=== PATIENT | female | born 2000 | race Caucasian/White ===

== ENCOUNTER 2021-05-27 16:37 | Outpatient (REF) | payer OTHER, SELFPAY ==
[2021-05-27 17:00] LABS: COVID-19 Test Negative (Negative)
== END 2021-05-27 16:38 | disposition home or self-care (01) ==
LOC: HO.LAB 16:37
PROVIDERS: PCP Nurse Practitioner Family; Visit Provider Internal Medicine
DX: Z20.822 Contact with and (suspected) exposure to COVID-19 (principal)
CPT/HCPCS: 36415; 87635

== ENCOUNTER 2024-01-23 09:03 | Outpatient (AMB) | payer OTHER, SELFPAY ==
[2024-01-23 09:11] VITALS: BP 118/76; PULSE 90; O2SAT 99; BMI 20.8
--- NOTE | 2024-01-23 09:11 | MHC.PC.OV ---
Vital Signs 01/23/24 09:11 Height 5 ft 8 in Weight 137 lb 0.2 oz BMI 20.8 BP 118/76 Blood Pressure Location Lt brachial Position Sitting Pulse 90 Pulse Source Pulse Oximeter Pulse Oximetry (%) 99 Oxygen Delivery Method Room Air Intake Visit Reasons: Demetrius Howell () called to make appt Curator Of Education Required: No Allergies No Known Allergies Allergy (Verified 01/23/24 09:19) Medication List - Last Reconciled 01/23/24 by Christine Sebastian PA-C norethindrone (contraceptive) 0.35 mg PO DAILY Tobacco use date assessed: 01/23/24 Dental Screening Dental Screen Date: 01/23/24 Did you have a dental visit in the last 12 months?: No Did you have a dental problem in the last 6 months where you did not have access to dental care?: No Was dental information given to patient?: Yes HPI Establish Diya Howell () called to make appt HPI Details 23-year-old female with no documented past medical history presenting to the office for the 1st time.? Patient is not known to [facility]. She follows with [facility] [employer] and annual well woman exams. Today she mentions she has been having issues with anxiety and depression and was previously treated for these when under the care of her workforce development program director. She scored high on JASE-7 and PHQ-9 testing and endorses anxious and depressed feelings most days. She also mentions she sleeps poorly and has difficulty falling asleep as well as staying asleep. Previously she had been treated with Trazodone by her workforce development program director and found this helpful. Has also been having increased weight loss over the past few months. She has not other concerns today. [facility] Surgical History [place] teeth removed Family History Mother Breast cancer Maternal Grandfather Lung cancer Paternal Grandfather Lung cancer Social History Housing: Apartment Patient Tobacco Use Status: Never used Tobacco e-Cigarette/Vaping Use: Former Use service: No Current occupational status: employed Cognitive needs: No Hearing needs: No Vision needs: No Female Reproductive History Menstrual control method: pills Total pregnancies: 1 Full term: 1 History of abnormal pap smear: No Questionnaire PHQ-9 Over the last 2 weeks, how often have you been bothered by any of the following problems? 1. Little interest or pleasure in doing things: several days 2. Feeling down, depressed, or hopeless: several days 3. Trouble falling or staying asleep, or sleeping too much: more than half the days 4. Feeling tired or having little energy: more than half the days 5. Poor appetite or overeating: more than half the days 6. Feeling bad about yourself - or that you are a failure or have let yourself or your family down: several days 7. Trouble concentrating on things, such as reading the newspaper or watching television: several days 8. Moving or speaking so slowly that other people could have noticed. Or the opposite - being so fidgety or restless that you have been moving around a lot more than usual: not at all 9. Thoughts that you would be better off or of hurting yourself in some way: not at all Total score: 10 Depression Screening Interpretation: Positive Depression Screening Follow-up: New Medication prescribed, Follow-up Visit Requested and Other (referred to outpatient psych ) Depression Screening Done: Yes 86096 - PHQ-9 Billing: Yes Source: Developed by Drs. Rigoberto Graham, Danyell Marquez, Gilmar Mandujano and colleagues, with an educational parth from [employer]. Thrive Questionnaire Date Thrive assessed: 01/23/24 I am a: Patient What is your living situation today?: I have a steady place to live Within the past 12 months, did the food you bought not last and you didn't have the money to get more?: Never true Within the past 12 months, did you worry whether your food would run out before you got money to buy more?: Never true Do you have trouble paying for medicines?: No Do you have trouble getting transportation to medical appointments?: No Do you have trouble paying your heating and electricity bill?: No Do you have trouble taking care of your child, family member or friend?: No Do you have trouble with day-to-day activities such as bathing, preparing meals, shopping, managing finances, etc.?: No Are you currently unemployed and looking for a job?: No Are you interested in more education?: No Please select the resources that you would like help with: None Currently or been in a relationship where the following occur: No concerns reported THRIVE Score: 0 AUDIT C Alcohol Use Questionnaire (AUDIT-C) 1. How often do you have a drink containing alcohol?: Never 3. How often do you have six or more drinks on one occasion?: Never Total Score: 0 JASE-7 AMB Questionnaire JASE-7 Date JASE - 7 assessed: 01/23/24 Feeling nervous, anxious, or on edge: 3 = Nearly every day Not being able to stop or control worryin = Nearly every day Worrying too much about different things: 3 = Nearly every day Trouble relaxin = Nearly every day Being so restless that it is hard to sit still: 0 = Not at all Becoming easily annoyed or irritable: 3 = Nearly every day Feeling afraid as if something awful might happen: 2 = More than half the days Total JASE-7 score (0-4 normal; 5-9 mild; 10-14 moderate; 15-21 severe): 17 Source: Developed by Drs. Rigoberto Graham, Danyell Marquez, Gilmar Mandujano and colleagues, with an educational parth from [employer]. JASE-7 Assessment Billing JASE-7 Assessment Tool: JASE-7 Assessment 68588 Review of Systems Const Denies body aches, Reports fatigue, Denies fever(s), Denies frequent falls, Denies headache(s), Denies weakness and Reports weight loss Eyes Reports no additional complaints and Denies change in vision ENT Denies dysphagia, Denies dizziness, Denies facial pain, Denies headache(s), Denies nasal congestion and Denies odynophagia Card Denies chest pain, Denies syncope, Denies irregular heart rhythm, Denies leg edema, Denies lightheadedness and Denies dyspnea Resp Denies cough and Denies dyspnea GI Denies constipation, Denies dysphagia, Denies dyspepsia, Denies diarrhea, Denies nausea, Denies odynophagia and Denies vomiting Denies urinary frequency, Denies dysuria, Denies urinary hesitancy and Denies urinary urgency Musc Denies back pain and Denies myalgias Skin/Breast Reports system reviewed and no additional complaints, except as documented Neuro Denies dizziness, Denies syncope, Denies frequent falls, Denies headache(s) and Denies weakness Psych Reports as per HPI Endo Reports fatigue Physical exam (Primary Care) Depression Screening Interpretation: Positive Depression Screening Follow-up: New Medication prescribed, Follow-up Visit Requested and Other (referred to outpatient psych ) Currently or been in a relationship where the following occur: No concerns reported Const General: cooperative, healthy appearing, comfortable and no acute distress Orientation/consciousness: patient oriented x3 HENMT Head: Yes normocephalic Ears: hearing grossly normal bilaterally, external ears normal, TM's normal bilaterally and EAC's normal General nose exam: Normal external nose present Face and sinus: Yes normal facial exam and Yes sinuses nontender Mouth: Normal oral and palatal mucosa present and tongue normal Throat: Yes posterior oropharynx normal Eyes General: appearance normal, both eyes and all related structures Conjunctivae: conjunctivae normal Pupils: Equal, round and reactive pupils present EOM: EOMs intact bilaterally and No Nystagmus present Neck Neck: Yes normal visual inspection, Yes full ROM and Yes no lymphadenopathy Chest Chest palpation & inspection: normal inspection of the chest Resp Effort & Inspection: normal respiratory effort Auscultation: clear to auscultation bilaterally, no crackles, no rales, no rhonchi, no wheezes and breath sounds present Cardio Rate: regular rate Rhythm: regular rhythm Peripheral pulses: radial pulses present and dorsalis pedis present GI Inspection: Yes normal to inspection and No Abdominal wall edema Palpation (GI): Soft to palpation, not firm and nontender Auscultation: normal bowel sounds Rectal Exam - Female: deferred General: Yes no CVA tenderness Back/Spine/Pelvis Back: no CVA tenderness Skin General skin exam: no rashes or lesions noted Neuro General: patient oriented x3 Cranial nerves: Yes Equal, round and reactive pupils present, Yes Midline tongue present, Yes Ability to bilaterally elevate shoulders present and No Nystagmus present Gait exam (Neuro): Normal gait present Extrem General: Yes normal to inspection, Yes full ROM, No no pedal edema and No edema Psych Speech and movement: Normal speech and movement present Affect: normal affect Insight: Good insight present (Psych) Judgement: Good judgement present (Psych) Assessment and Plan Assessment & Plan (1) Anxiety: Code(s): F41.9 - Anxiety disorder, unspecified Plan: Patient was previously treated for anxiety and depression by her workforce development program director and was on Lexapro. She mentions she has been having increased anxiety and depression and is currently on a wait list for psychiatric services. Referred to outpatient [facility] through [facility] in the meantime. (2) Depression: Code(s): F32.A - Depression, unspecified Plan: History of depression previously on Lexapro. She is seeking [facility] for mental health. Patient would like to see a counselor and resume medical management. Referred to outpatient [facility] clinic. (3) Insomnia: Code(s): G47.00 - Insomnia, unspecified Plan: Patient has issues falling asleep and staying asleep was previously on trazodone with good benefit. We will restart trazodone 50 mg as needed before bedtime. Follow up in 2 months to evaluate efficacy. (4) Annual physical exam: Code(s): Z00.00 - Encounter for general adult medical examination without abnormal findings Plan: Patient is up-to-date on all screenings and recommended vaccinations. Follows at [facility] for annual Pap smears. Routine blood work ordered. Plan This note was constructed using voice recognition software. While every effort has been made to ensure accuracy and law examiner, still areas may have been included sometimes these areas may affect the content or meeting of the given symptoms. Total time spent caring for the patient today was 35 minutes. This includes time spent before the visit reviewing the chart, time spent during the visit, and time spent after the visit and documentation. Orders: Orders Complete Blood Count Auto Diff Today Z00.00 - Encounter for general adult medical examination without abnormal findings Free T4 (Free Thyroxine) Today Z00.00 - Encounter for general adult medical examination without abnormal findings Comprehensive Met. Panel Today Z00.00 - Encounter for general adult medical examination without abnormal findings Thyroid Stimulating Hormone Today Z00.00 - Encounter for general adult medical examination without abnormal findings Referrals Psychiatry Outpatient Consultation Service F41.9 - Anxiety disorder, unspecified Medications: New trazodone 50 mg PO BEDTIME PRN 30 tabs 1RF sleep Coding Level of Care Code New Pt Prev Care 18-39yr(76556 Diagnoses Anxiety F41.9 Depression F32.A Insomnia G47.00 Annual physical exam Z00.00 Additional Codes JASE-7 Assessment Billing - JASE-7 Assessment Tool: JASE-7 Assessment 33299 ([id number])
== END 2024-01-23 09:44 | disposition home or self-care (01) ==
PROVIDERS: PCP Nurse Practitioner Family
DX: F41.9 Anxiety disorder, unspecified (principal); F32.A Depression, unspecified; G47.00 Insomnia, unspecified; Z00.00 Encounter for general adult medical examination without abnormal findings
CPT/HCPCS: 96127; 99385

== ENCOUNTER 2024-01-23 09:48 | Outpatient (REF) | payer OTHER, SELFPAY ==
[2024-01-23 10:00] LABS: MANUAL DIFF FLAG NO
[2024-01-23 10:46] LABS: Basophils Percent Auto 0.5 % (0-2); Eosinophils Absolute Auto 0.1 X10*3/uL (0.0-0.4); Eosinophils Percent Auto 1.1 % (0-4); Hematocrit 40.7 % (37.0-47.0); Hemoglobin 13.6 g/dl (12.0-16.0); Imm Gran Abs Auto 0.02 X10*3/uL (0.00-0.03); Imm Gran Pct Auto 0.3 % (0.0-0.4); Lymphocytes Absolute Auto 3.1 X10*3/uL (1.2-4.9); Lymphocytes Percent Auto 39.7 % (20-40); Mean Corpuscular HGB Conc 33.4 g/dl (31.0-35.0); Mean Corpuscular Volume 89.6 fL (80.0-98.0); Mean Platelet Volume 10.2 fL (9.4-12.3); Monocytes Absolute Auto 0.5 X10*3/uL (0.1-1.2); Monocytes Percent Auto 6.7 % (2-11); Neutrophils Absolute Auto 4.1 x10*3/uL (2.0-8.3); Neutrophils Percent Auto 51.7 % (45-73); Platelet Count 297 X10*3/uL (160-400); Red Blood Count 4.54 X10*6/uL (4.20-5.50); Red Cell Distribution Width 12.8 % (11.0-16.0); White Blood Count 7.9 X10*3/uL (4.8-10.8)
[2024-01-23 11:27] LABS: Alanine Aminotransferase 19 U/L (0-31); Albumin Level 4.6 g/dL (3.5-5.0); Alkaline Phosphatase 56 U/L (39-117); Anion Gap 13 (12-20); Aspartate Amino Transferase 11 U/L (5-31); Bilirubin Total 0.6 mg/dL (0.0-1.0); Blood Urea Nitrogen 10 mg/dL (9-16); Calcium 10.2 mg/dL (8.4-10.2); Carbon Dioxide 26 mmol/L (22-29); Chloride 106 mmol/L (96-108); Estimated Glomerular Filt Rate > 60; Glucose Random 100 mg/dL (60-115); Potassium 3.5 mmol/L (3.3-5.1); Sodium 141 mmol/L (135-145); Total Protein 7.5 g/dL (6.5-8.0)
[2024-01-23 11:42] LABS: Free T4 (Free Thyroxine) 0.94 ng/dL (0.71-1.85)
== END 2024-01-23 09:49 | disposition home or self-care (01) ==
LOC: HO.LAB 09:48
DX: Z00.00 Encounter for general adult medical examination without abnormal findings (principal)
CPT/HCPCS: 36415; 80053; 84439; 84443; 85025

== ENCOUNTER 2024-02-01 15:49 | Outpatient (AMB) | payer OTHER, SELFPAY ==
--- OUTSIDE RECORDS SUMMARY | 2024-02-01 15:51 | XMS_ITS | Continuity of Care Document ---
Author Organization [facility] Address [address] [place] [address]- Care Team Providers Care Interior Paneler Name Role Phone Bhavna Rios NP Primary Care Physician [phone] [facility] Date(s): 01/19/21 - 03/17/21 [facility] [address] [place], [place] [address] Attending Physician: Tania Ricks MD Allergies, Adverse Reactions, Alerts Substance Reaction Severity Status NKA Active Immunizations Given and Recorded Vaccine Date Status Refusal Reason SARS-CoV-2 (COVID-19) mRNA BNT-162b2 vac 10/24/20 Recorded Influenza Virus Vaccine (oldterm) 03/26/20 Recorde d Medications Multivitamin Tablet 0 Refills, Maintenance, 12/10/20 10:37:00 EDT, Partial fill upon patient request if the prescription is for a schedule II opioid drug. Start Date: 12/10/20 Status: Ordered No Home Meds Maintenance, 12/03/20 15:30:00 EDT, Supply Start Date: 12/03/20 Status: Ordered Problem List Condition Effective Dates Status Health Status Inform ant Anxiety(Confirmed) Active Family history of diabetes mellitus(Confirmed) Active Overweight(Confirmed) Active Seasonal allergies(Confirmed) Active Maternal varicella, non-immune(Confirmed) Active Social History Social History Type Response Smoking Status Never (less than 100 in lifetime) entered on: 12/03/20 Sex
--- OUTSIDE RECORDS SUMMARY | 2024-02-01 15:51 | XMS_ITS | Continuity of Care Document ---
Author Organization [facility] Address [address] [place] [address]- Care Team Providers Care Outbound Telemarketing Representative Name Role Phone Bhavna Rios NP Primary Care Physician [phone] [facility] Date(s): 12/08/20 - 12/15/[facility] [address] [place] [id number] Attending Physician: Not on Staff, Attending MD Referring Physician: Bo Daniel MD Allergies, Adverse Reactions, Alerts Substance Reaction [...] Status Health Status Inform ant Anxiety(Confirmed) Active Overweight(Confirmed) Active Seasonal allergies(Confirmed) Active Social History Social History Type Response Smoking Status Never (less than 100 in lifetime) entered on: 12/03/20 Sex
--- OUTSIDE RECORDS SUMMARY | 2024-02-01 15:51 | XMS_ITS | Continuity of Care Document ---
Author Organization [facility] Address [address] [place] [address]- Care Team Providers Care Pump Stitcher Name Role Phone Bhavna Rios NP Primary Care Physician Encounter [facility] Date(s): 12/03/20 - 01/17/21 [facility] [address] [place] [id number] Attending Physician: Not on Staff, Attending MD [...]
--- OUTSIDE RECORDS SUMMARY | 2024-02-01 15:51 | XMS_ITS | Continuity of Care Document ---
Author Organization [facility] Address [address] [place] [address]- Care Team Providers Care Supervisor Paper Coating Name Role Phone Bhavna Rios NP Primary Care Physician [place] [facility] Date(s): 04/26/21 - 05/26/21 [facility] [address] [place] [address]- Allergies, Adverse Reactions, Alerts Substance Reaction Severity Status NKA Active Immunizations Given and Recorded Vaccine Date Status Refusal Reason tetanus/diphtheria/pertussis, acel(Tdap) 1 05/05/21 Given SARS-CoV-2 (COVID-19) mRNA BNT-162b2 vac 10/24/20 Recorded Influenza Virus Vaccine (oldterm) 03/26/20 Recorde d 1Result Comment: Handled getting vaccine well Medications Multivitamin Tablet 0 Refills, Maintenance, 12/10/20 10:37:00 EDT, Partial fill upon patient request if the prescription is for a schedule II opioid drug. Start Date: 12/10/20 Status: Ordered Problem List Condition Effective Dates Status Health Status Inform ant Anxiety(Confirmed) Active Excessive weight gain in (Confirmed) Active Family history of diabetes mellitus(Confirmed) Active Obese class I(Confirmed) Active Overweight(Confirmed) Active Right upper quadrant pain(Confirmed) Active Seasonal allergies(Confirmed) Active Maternal varicella, non-immune(Confirmed) Active Social History Social History Type Response Smoking Status Never (less than 100 in lifetime) entered on: 12/03/20 Sex
--- OUTSIDE RECORDS SUMMARY | 2024-02-01 15:51 | XMS_ITS | Continuity of Care Document ---
Author Organization [facility] Address [address] [place] [address]- Care Team Providers Care Dupligraph Operator Name Role Phone Bhavna Rios NP Primary Care Physician [place] [facility] [place]/23[place] - 07/30/21 [facility] [address] [place] [address]- Attending Physician: Bo Daniel MD Allergies, Adverse Reactions, Alerts No Known Allergies Immunizations Given and Recorded Vaccine Date Status Refusal Reason tetanus/diphtheria/pertussis, acel(Tdap) 1 05/05/21 Given SARS-CoV-2 (COVID-19) mRNA BNT-162b2 vac 10/24/20 Recorded Influenza Virus Vaccine (oldterm) 03/26/20 Recorde d 1Result Comment: Handled getting vaccine well Medications acetaminophen 325 mg oral tablet 650 mg, By Mouth, Every 4 hours, PRN, (1-3), may give 325mg per patient preference and re-dose [id number] within 4 hours, if needed. Patient should only receive a total of 650mg of Acetaminophen every 4 hours., Refills 0, Maintenance, Pain , Mild, 0... Start Date: 07/27/21 Status: Ordered DOUBLE ELECTRIC BREAST PUMP DOUBLE ELECTRIC BREAST PUMP, See Instructions, # 1 each, Refills 0, Tot. Refills 0, Maintenance, Z39.1, 06/15/21 9:05:00 EST, Compound Start Date: 06/15/21 Status: Ordered ibuprofen 800 mg oral tablet 800 mg, 1, tablet, By Mouth, Every 8 hours, PRN, (4-6), may give 400mg per patient preference and re-dose with 400mg within 8 hours if needed. Patient should only receive a total of 800mg of Ibuprofen every 8 hours., Refills 0, Maintenance, Pain , M... Start Date: 07/27/21 Status: Ordered Multivitamin Tablet 0 Refills, Maintenance, 12/10/20 10:37:00 EDT, Partial fill upon patient request if the prescription is for a schedule II opioid drug. Start Date: 12/10/20 Status: Ordered Problem List Condition Effective Dates Status Health Status Inform ant Anxiety(Confirmed) Active Excessive weight gain in (Confirmed) Active Family history of diabetes mellitus(Confirmed) Active GBS (group B Streptococcus c arrier), +RV culture, currently (Confirmed) Active Obese class II(Confirmed) Active Overweight(Confirmed) Active Right upper quadrant pain(Confirmed) Active Seasonal allergies(Confirmed) Active Maternal varicella, non-immune(Confirmed) Active Vital Signs Most recent to oldest [Reference Range]: 1 2 3 Height 171 cm (07/23/21 2:10 PM) 171 cm (07/23/21 2:09 PM) 171 cm (07/23/21 1:49 PM) Weight 105.4 kg (07/23/21 1:49 PM) Body Mass Index [18.5-24.99] 36.05 *>HHI* (07/23/21 1:49 PM) Blood Pressure [90-138/55-84 mm Hg] 130/74mm Hg (07/23/21 2:10 PM) 162/80mm Hg *H* (07/23/21 2:09 PM) 146/70mm Hg *H* (07/23/21 1:49 PM) Blood pressure sites Arm, right (07/23/21 2:10 PM) Arm, right (07/23/21 2:09 PM) Arm, right (07/23/21 1:49 PM) Weight Obtained Via Standing scale (07/23/21 1:49 PM) Social History Social History Type Response Smoking Status Never (less than 100 in lifetime) entered on: 12/03/20 Sex
--- OUTSIDE RECORDS SUMMARY | 2024-02-01 15:51 | XMS_ITS | Continuity of Care Document ---
Author Organization [facility] Address [address] [place] [address]- Care Team Providers Care Sales Account Representative Name Role Phone Gabriel AGUIRRE, Bhavna Primary Care Physician Encounter [facility] Date(s): 07/25/21 - 07/27/[address] [address] Discharge Disposition: A-D/C Home Attending Physician: Bo Daniel MD Admitting Physician: Bo Daniel MD Referring Physician: Bo Daniel MD Allergies, [...] give 325mg per patient preference and re-dose [id number] within 4 hours, if needed. Patient should only receive a total of 650mg of Acetaminophen every 4 hours., Refills 0, Maintenance, Pain , Mild, 0... Start Date: 07/27/21 Status: Ordered Acetaminophen Tablet 650 mg, Tablet, By Mouth, Every 4 hours, PRN for Pain , Mild, (1-3), may give 325mg per patient preference and re-dose with 325mg within 4 hours, if needed. Patient should only receive a total of 650mg of Acetaminophen every 4 hours., Routine, 07/26... Start Date: 07/26/21 Stop Date: 08/25/21 Status: Ordered DOUBLE ELECTRIC BREAST PUMP DOUBLE [...] , M... Start Date: 07/27/21 Status: Ordered Ibuprofen Tablet 800 mg, Tablet, By Mouth, Every 8 hours, PRN for Pain , Moderate, (4-6), may give 400mg per patientpreference and re-dose with 400mg within 8 hours if needed. Patient should only receive a total of 800mg of Ibuprofen every 8 hours., Routine, ... Start Date: 07/26/21 Stop Date: 08/09/21 Status: Ordered Multivitamin Tablet 0 Refills, Maintenance, [...] oldest [Reference Range]: 1 2 3 Height 169 cm (07/27/21 12:02 AM) 169 cm (07/26/21 4:57 PM) 169 cm (07/26/21 9:50 AM) Weight 106.9 kg (07/25/21 6:09 AM) 106.9 kg (07/25/21 6:00 AM) 106.9 kg (07/25/21 12:10 AM) Oxygen Saturation [94-100 %] 100 % (07/27/21 8:00 AM) 100 % (07/27/21 12:02 AM) 98 % (07/26/21 4:57 PM) Pulse Rate [55-90 bpm] 77 bpm (07/27/21 8:00 AM) 96 bpm *H* (07/27/21 12:02 AM) 107 bpm *H* (07/26/21 4:57 PM) Body Mass Index [18.5-24.99] 37.43 *>HHI* (07/25/21 6:00 AM) Blood Pressure [90-138/55-84 mm Hg] 120/69mm Hg (07/27/21 8:00 AM) 113/74mm Hg (07/27/21 12:02 AM) 120/72mm Hg (07/26/21 4:57 PM) Respiratory Rate [16-30 br/min] 20 br/min (07/27/21 12:49 PM) 20 br/min (07/27/21 12:49 PM) 20 br/min (07/27/21 8:00 AM) Temperature [96.8-100.4 DegF] 97.9 DegF (07/27/21 8:00 AM) 98.1 DegF (07/27/21 12:02 AM) 98.2 DegF (07/26/21 4:57 PM) Mode of Delivery (Oxygen) Room air (07/27/21 8:00 AM) Room air (07/27/21 12:02 AM) Room air (07/25/21 6:00 AM) Blood pressure sites Arm, left (07/27/21 8:00 AM) Arm, left (07/27/21 12:02 AM) Arm, right (07/26/21 4:57 PM) Temperature Route Oral (07/27/21 8:00 AM) Oral (07/27/21 12:02 AM) Oral (07/26/21 4:57 PM) Dry Weight 106.9 kg (07/25/21 6:00 AM) 106.9 kg (07/25/21 12:10 AM) Weight Obtained Via Standing scale (07/25/21 12:10 AM) Social History Social History Type Response Smoking Status Never (less than 100 in lifetime) entered on: 12/03/20 Sex
--- OUTSIDE RECORDS SUMMARY | 2024-02-01 15:51 | XMS_ITS | Continuity of Care Document ---
Author Organization [facility] Address [address] [place] [address]- Care Team Providers Care Dot Etcher Apprentice Name Role Phone Bhavna Rios NP Primary Care Physician En[place] [facility] [place] Date(s): 04/02/21 - 06/06/21 [facility] [address] [place] [address]- Attending Physician: Charis Cabral MD Allergies, Adverse Reactions, Alerts Substance Reaction [...]
--- OUTSIDE RECORDS SUMMARY | 2024-02-01 15:51 | XMS_ITS | Continuity of Care Document ---
Author Organization [facility] Address [address] [place] [address]- Care Team Providers Care Damper Fitter Name Role Phone Bhavna Rios NP Primary Care Physician Encounter [facility] [place] [facility] [id number] Date(s): 09/08/21 - 10/08/21 [facility] [address] [place] [address]- Attending Physician: Mallory Tinoco Admitting Physician: Admtr, Mallory Referring Physician: Admtr, ArMason Allergies, Adverse Reactions, Alerts No Known Allergies [...] give 325mg per patient preference and re-dose [id number] within 4 hours, if needed. Patient should [...] opioid drug. Start Date: 12/10/20 Status: Ordered norethindrone 0.35 mg oral tablet 1 tablet = 0.35 mg, By Mouth, Daily, # 28 tablet, 11 Refills, Maintenance, 08/09/21 8:18:00 EST, Tablet, [id number], Partial fill upon patient request if the prescription is for a schedule IIopioid drug., 169, cm, 07/27/21 0:02:00 EST, Height... Start Date: 08/09/21 Status: Ordered Problem List Condition Effective Dates Status Health Status Inform ant Anxiety(Confirmed) Active Excessive weight gain in (Confirmed) Active Family history of diabetes mellitus(Confirmed) Active GBS (group B Streptococcus c arrier), +RV culture, currently (Confirmed) Active Obese class I(Confirmed) Active Oral contraceptive pill surveillance(Confirmed) Active Overweight(Confirmed) Active state(Confirmed) Active Right upper quadrant pain(Confirmed) Active Seasonal allergies(Confirmed) Active Maternal varicella, non-immune(Confirmed) Active Social History Social History Type Response Smoking Status Never (less than 100 in lifetime) entered on: 12/03/20 Sex
--- OUTSIDE RECORDS SUMMARY | 2024-02-01 15:51 | XMS_ITS | Continuity of Care Document ---
Author Organization [facility] [place] Address [address] [place] [address]- Care Team Providers Care Chair Pad Maker Name Role Phone Bhvana Rios NP Primary Care Physician Encounter 05/07/21 - 05/14/21 [facility] [facility] [address], [address] [place], [place] [address] Attending Physician: Tania Ricks MD Admitting Physician: Tania Ricks MD Referring Physician: Tania Ricks MD Allergies, Adverse Reactions, [...]
--- OUTSIDE RECORDS SUMMARY | 2024-02-01 15:51 | XMS_ITS | Continuity of Care Document ---
Author Organization [facility] Address [address] [place] [address]- Care Team Providers Care Instructional Coach Name Role Phone Bhavna Rios NP Primary Care Physician Encounter [facility] [place] Date(s): 01/08/21 - 02/07/21 [facility] [address] [place], [place] [address] Allergies, Adverse Reactions, Alerts Substance Reaction Severity [...]
--- OUTSIDE RECORDS SUMMARY | 2024-02-01 15:51 | XMS_ITS | Continuity of Care Document ---
Author Organization [facility] Address [address] [place] [address]- Care Team Providers Care Citrix Engineer Name Role Phone Bhavna Rios NP Primary Care Physician En[place] [facility] [place] Date(s): 07/02/21 - 08/01/21 [facility] [address] [place] [address]- Allergies, Adverse Reactions, Alerts No Known Allergies [...] give 325mg per patient preference and re-dose [id number] within 4 hours, if needed. Patient should [...]
--- OUTSIDE RECORDS SUMMARY | 2024-02-01 15:51 | XMS_ITS | Continuity of Care Document ---
Author Organization [facility] Address [address] [place] [address]- Care Team Providers Care Process Stripper Name Role Phone Bhavna Rios NP Primary Care Physician [phone] Encounter [facility] [place] Date(s): 09/13/22 - 10/13/22 [facility] [address] [place] [address]- Attending Physician: Mallory Tinoco Admitting Physician: Mallory Tinoco Referring Physician: AdmtrMallory Allergies, Adverse Reactions, Alerts No Known Allergies [...] give 325mg per patient preference and re-dose [id number] within 4 hours, if needed. Patient should [...] Refills, Maintenance, 08/09/21 8:18:00 EST, Tablet, [facility] fill upon patient request if the prescription is for a schedule IIopioid drug., 169, cm, 07/27/21 0:02:00 EST, Height... Start Date: 08/09/21 Status: Ordered Problem List Condition Confirmation Course Effective Dates Status H ealth Status Informant Anxiety Confirmed Active Excessive weight gain in Confirmed Active Family history of diabetes mellitus Confirmed Active GBS (group B Streptococcus carrier), +RV culture, currently Confirmed Active Obese class I Confirmed Active Oral contraceptive pill surveillance Confirmed Active Overweight Confirmed Active state Confirmed Active Right upper quadrant pain Confirmed Active Seasonal allergies Confirmed Active Maternal varicella, non-immune Confirmed Active Social History Social History Type Response Smoking Status Never (less than 100 in lifetime) entered on: 12/03/20 Sex Note * Event Display: Non BH Lab Results Authored Date: [id number] Patient Care team information Care Team Personnel Name: Tania Ricks MD Position: [facility] FRAME BUILDER MD Member Role: Lifetime FRAME BUILDER Physician Address: Address: [address] [place] [address]- Name: Bhavna Rios NP Position: [facility] Associate Professional Member Role: PCP Address: Address: [address] [facility] [place] [address]- Care Team Related Persons Name: PHUC STUBBS Address: home [address] [place] [address] Name: BRIA CRONIN Address: AMER[place] Address: home [address] [place] [address]
--- OUTSIDE RECORDS SUMMARY | 2024-02-01 15:51 | XMS_ITS | Continuity of Care Document ---
Author Organization [facility] Address [address] [place] [address]- Care Team Providers Care Manager Process Excellence Name Role Phone Bhavna Rios NP Primary Care Physician [place] [facility] 10/12/21 - 11/11/21 [facility] [address] [place] [address]- Allergies, Adverse Reactions, Alerts No Known Allergies [...] give 325mg per patient preference and re-dose [id number] within 4 hours, if needed. Patient should [...]
--- OUTSIDE RECORDS SUMMARY | 2024-02-01 15:51 | XMS_ITS | Continuity of Care Document ---
Author Organization [facility] Address [address] [place] [address]- Care Team Providers Care Deckhand Name Role Phone Bhavna Rios NP Primary Care Physician [phone] Encounter [facility] [place] ACCT R [id number] Date(s): 05/05/21 - 05/12/21 [facility] [address] [place] [address]- Attending Physician: Tania Ricks MD Allergies, Adverse [...] Most recent to oldest [Reference Range]: 1 Height 171 cm (05/05/21 11:31 AM) Weight 93.1 kg (05/05/21 11:31 AM) Body Mass Index [18.5-24.99] 31.84 *>HHI* (05/05/21 11:31 AM) Blood Pressure [90-138/55-84 mm Hg] 98/5 4mm Hg (05/05/21 11:31 AM) Blood pressure sites Arm, right (05/05/21 11:31 AM) Weight Obtained Via Standing scale (05/05/21 11:31 AM) Social History Social History Type Response Smoking Status Never (less than 100 in lifetime) entered on: 12/03/20 Sex
--- OUTSIDE RECORDS SUMMARY | 2024-02-01 15:51 | XMS_ITS | Continuity of Care Document ---
Author Organization [facility] Address [address] [place] [address]- Care Team Providers Care Cork Tile Floor Layer Name Role Phone Gabriel AGUIRRE, Bhavna Primary Care Physician [facility] [id number] Date(s): 06/29/21 - 07/06/21 [facility] [address] [place] [address]- Attending Physician: Allison SANTIZO, Ariana Sotomayor Allergies, Adverse Reactions, Alerts Substance Reaction Severity Status NKA Active Immunizations Given and Recorded Vaccine Date Status Refusal Reason tetanus/diphtheria/pertussis, acel(Tdap) 1 05/05/21 Given SARS-CoV-2 (COVID-19) mRNA BNT-162b2 vac 10/24/20 Recorded Influenza Virus Vaccine (oldterm) 03/26/20 Recorde d 1Result Comment: Handled getting vaccine well Medications DOUBLE ELECTRIC BREAST PUMP DOUBLE ELECTRIC BREAST PUMP, See Instructions, # 1 each, Refills 0, Tot. Refills 0, Maintenance, Z39.1, 06/15/21 9:05:00 EST, Compound Start Date: 06/15/21 Status: Ordered Multivitamin Tablet 0 Refills, Maintenance, [...] oldest [Reference Range]: 1 Height 171 cm (06/29/21 11:59 AM) Weight 102.5 kg (06/29/21 11:59 AM) Body Mass Index [18.5-24.99] 35.05 *>HHI* (06/29/21 11:59 AM) Blood Pressure [90-138/55-84 mm Hg] 124/ 78mm Hg (06/29/21 11:59 AM) Blood pressure sites Arm, left (06/29/21 11:59 AM) Weight Obtained Via Standing scale (06/29/21 11:59 AM) Social History Social History Type Response Smoking Status Never (less than 100 in lifetime) entered on: 12/03/20 Sex
--- OUTSIDE RECORDS SUMMARY | 2024-02-01 15:51 | XMS_ITS | Continuity of Care Document ---
Author Organization [facility] Address [address] [place] [address]- Care Team Providers Care Advertising Designer Name Role Phone Bhavna Rios NP Primary Care Physician [phone] [place] [facility] [place] 06/10/21 - 07/10/21 [facility] [address] [place], [place] [address] Allergies, Adverse Reactions, Alerts No Known Allergies [...]
--- OUTSIDE RECORDS SUMMARY | 2024-02-01 15:51 | XMS_ITS | Continuity of Care Document ---
Author Organization [facility] Address [address] [place] [address]- Care Team Providers Care Therapist Respiratory Name Role Phone Bhavna Rios NP Primary Care Physician Encounter [facility] [place] Date(s): 05/25/21 - 06/01/21 [facility] [address] [place], [place] [address] Attending Physician: Tania Ricks MD Allergies, Adverse [...]
--- OUTSIDE RECORDS SUMMARY | 2024-02-01 15:51 | XMS_ITS | Continuity of Care Document ---
Author Organization [facility] Address [address] [place] [address]- Care Team Providers Care Assembly Machine Tender Name Role Phone Bhavna Rios NP Primary Care Physician Encounter [facility] Date(s): 01/05/21 - 02/04/21 [facility] [address] [place], [place] [address] Allergies, Adverse Reactions, Alerts Substance [...]
--- OUTSIDE RECORDS SUMMARY | 2024-02-01 15:51 | XMS_ITS | Continuity of Care Document ---
Author Organization [facility] Address [address] [place] [address]- Care Team Providers Care Electronic Assembly Name Role Phone Bhavna Rios NP Primary Care Physician Encounter [facility] [place] Date(s): 07/16/21 - 07/23/21 [facility] [address] [place] [address]- Attending Physician: Bo Daniel MD Allergies, Adverse [...]
--- OUTSIDE RECORDS SUMMARY | 2024-02-01 15:51 | XMS_ITS | Continuity of Care Document ---
Author Organization [facility] Address [address] [place] [address]- Care Team Providers Care Legal Records Clerk Name Role Phone Bhavna Rios NP Primary Care Physician En[place] [facility] [place] [facility]CT R [id number] Date(s): 06/03/21 - 06/10/21 [facility] [address] [place] [address]- Attending Physician: Charis Cabral MD Allergies, Adverse [...]
--- OUTSIDE RECORDS SUMMARY | 2024-02-01 15:51 | XMS_ITS | Continuity of Care Document ---
Author Organization [facility] Address [address] [place] [address]- Care Team Providers Care Radiological Metallurgist Name Role Phone Bhavna Rios NP Primary Care Physician Encounter [facility] [place] Date(s): 11/30/20 - 12/30/[address] [address] Allergies, Adverse Reactions, Alerts Substance Reaction [...]
--- OUTSIDE RECORDS SUMMARY | 2024-02-01 15:51 | XMS_ITS | Continuity of Care Document ---
Author Organization [facility] Address [address] [place] [address]- Care Team Providers Care Iv Rn Name Role Phone Bhavna Rios NP Primary Care Physician Encounter [facility] [place] Date(s): 09/14/22 - 10/14/22 [facility] [address] [place] [address]- Allergies, Adverse Reactions, Alerts No Known Allergies [...] give 325mg per patient preference and re-dose [id number] within 4 hours, if needed. Patient should [...] 100 in lifetime) entered on: 12/03/20 Sex Patient Care team information Care Team Personnel Name: Tania Ricks MD Position: [facility] VP OUTCOMES MD Member Role: Lifetime VP OUTCOMES Physician Address: Address: [address] [place] [address] [facility] [place], [place] [address] Name: Bhavna Rios NP Position: [facility] Associate Professional Member Role: PCP Address: Address: [address] [place] [address] Pediatric[place], [place] [address] Care Team Related Persons Name: PHUC STUBBS Address: [address] [place] [address] Name: BRIA CRONIN Address: [employer] Address: home [address] [place] [address]
--- OUTSIDE RECORDS SUMMARY | 2024-02-01 15:51 | XMS_ITS | Continuity of Care Document ---
Author Organization [facility] Address [address] [place] [address]- Care Team Providers Care Assistant Import Manager Name Role Phone Bhavna Rios NP Primary Care Physician [phone] [place] [facility] [place] [id number] Date(s): 07/09/21 - 08/08/21 [facility] [address] [place] [address] Attending Physician: Admtr, Alvarez8 Admitting Physician: Admtr, Ar8 Referring Physician: Admtr, Ar8 Allergies, Adverse Reactions, Alerts No Known Allergies [...] give 325mg per patient preference and re-dose [id number] within 4 hours, if needed. Patient should [...]
--- OUTSIDE RECORDS SUMMARY | 2024-02-01 15:52 | XMS_ITS | Continuity of Care Document ---
Author Organization [facility] Address [address] [place] [address]- Care Team Providers Care Sample Grinder Name Role Phone Bhavna Rios NP Primary Care Physician En[place] [facility] [place] Date(s): 12/08/20 - 12/15/20 [facility] [address] [place] [address]- Attending Physician: Taya Moyer MD Allergies, Adverse Reactions, Alerts Substance Reaction [...] Anxiety(Confirmed) Active Overweight(Confirmed) Active Seasonal allergies(Confirmed) Active Vital Signs Most recent to oldest [Reference Range]: 1 Height 171 cm (12/08/20 9:16 AM) Weight 73.5 kg (12/08/20 9:16 AM) Body Mass Index [18.5-24.99] 25.14 *H* (12/08/20 9:16 AM) Blood Pressure [90-138/55-84 mm Hg] 110/ 68mm Hg (12/08/20 9:16 AM) Blood pressure sites Arm, right (12/08/20 9:16 AM) Weight Obtained Via Standing scale (12/08/20 9:16 AM) Social History Social History Type Response Smoking Status Never (less than 100 in lifetime) entered on: 12/03/20 Sex
--- OUTSIDE RECORDS SUMMARY | 2024-02-01 15:52 | XMS_ITS | Continuity of Care Document ---
Author Organization [facility] Address [address] [place] [address]- Care Team Providers Care Language Tutor Name Role Phone Bhavna Rios NP Primary Care Physician [phone] En[place] [facility] [place] [facility]CT R [id number] Date(s): 06/15/21 - 06/22/21 [facility] [address] [place], [place] [address] Attending Physician: Taya Moyer MD Allergies, Adverse [...] oldest [Reference Range]: 1 Height 171 cm (06/15/21 12:47 PM) Weight 100.1 kg (06/15/21 12:47 PM) Body Mass Index [18.5-24.99] 34.23 *>HHI* (06/15/21 12:47 PM) Blood Pressure [90-138/55-84 mm Hg] 124/ 68mm Hg (06/15/21 12:47 PM) Blood pressure sites Arm, left (06/15/21 12:47 PM) Dry Weight 100.1 kg (06/15/21 12:47 PM) Weight Obtained Via Standing scale (06/15/21 12:47 PM) Dry Weight Obtained Via Standing scale (06/15/21 12:47 PM) Social History Social History Type Response Smoking Status Never (less than 100 in lifetime) entered on: 12/03/20 Sex
--- OUTSIDE RECORDS SUMMARY | 2024-02-01 15:52 | XMS_ITS | Continuity of Care Document ---
Author Organization [facility] Address [address] [place] [address]- Care Team Providers Care Starbucks Clerk Name Role Phone Bhavna Rios NP Primary Care Physician Encounter [facility] [place] Date(s): 06/24/21 - 07/24/21 [facility] [address] [place] [address]- Allergies, Adverse Reactions, Alerts No Known Allergies [...]
--- OUTSIDE RECORDS SUMMARY | 2024-02-01 15:52 | XMS_ITS | Continuity of Care Document ---
Author Organization [facility] Address [address] [place] [address]- Care Team Providers Care Mineral Wool Insulation Supervisor Name Role Phone Gabriel AGUIRRE, Bhavna Primary Care Physician [phone] [id number] Date(s): 12/03/20 - 12/10/20 [facility] [address] [place] [address]- Attending Physician: Bo Daniel MD Referring Physician: Bhavna Rios NP Allergies, Adverse Reactions, Alerts Substance Reaction Severity [...] oldest [Reference Range]: 1 Height 171 cm (12/03/20 3:29 PM) Weight 77.7 kg (12/03/20 3:29 PM) Body Mass Index [18.5-24.99] 26.57 *H* (12/03/20 3:29 PM) Blood Pressure [90-138/55-84 mm Hg] 110/ 60mm Hg (12/03/20 3:29 PM) Blood pressure sites Arm, right (12/03/20 3:29 PM) Weight Obtained Via Standing scale (12/03/20 3:29 PM) Social History Social History Type Response Smoking Status Never (less than 100 in lifetime) entered on: 12/03/20 Sex
--- OUTSIDE RECORDS SUMMARY | 2024-02-01 15:52 | XMS_ITS | Continuity of Care Document ---
Author Organization [facility] Address [address] [place] [address]- Care Team Providers Care Plate Grinder Name Role Phone Bhavna Rios NP Primary Care Physician [phone] [place] [facility] [facility] [id number] Date(s): 12/10/20 - 01/09/21 [facility] [address] [place] [address]- Attending Physician: Mallory Tinoco Admitting Physician: AdmtrMallory Referring Physician: Admtr, Ar8 Allergies, Adverse Reactions, Alerts Substance Reaction Severity Status NKA Active Immunizations Given and Recorded Vaccine Date Status Refusal Reason SARS-CoV-2 (COVID-19) mRNA BNT-162b2 vac 10/24/20 Recorded Influenza Virus Vaccine (oldterm) 03/26/20 Recorde d Medications cephalexin monohydrate 500 mg oral capsule 1 capsule = 500 mg, By Mouth, Every 6 hours, for 7 days, # 28 capsule, 0 Refills, Acute 01/13/21 10:14:00 EDT, 01/06/21 10:14:00 EDT, [id number] Partial fill upon patient request if the prescription is for a schedule II opioid drug., 171, cm,... Start Date: 01/06/21 Stop Date: 01/13/21 Status: Ordered clotrimazole 1% vaginal cream with applicator 1 application, Vaginally, Daily at bedtime, for 7 days, # 45 Gm, 0 Refills, Acute 01/15/21 15:13:00EDT, 01/08/21 15:13:00 EDT, Cream, [id number], Partial fill upon patient request if the prescription is for a schedule II opioid drug., 1 appli... Start Date: 01/08/21 Stop Date: 01/15/21 Status: Ordered Multivitamin Tablet 0 Refills, Maintenance, [...]
--- OUTSIDE RECORDS SUMMARY | 2024-02-01 15:52 | XMS_ITS | Continuity of Care Document ---
Author Organization [facility] Address [address] [place] [address]- Care Team Providers Care Production Team Manager Name Role Phone Bhavna Rios NP Primary Care Physician En[facility] [place] ACCT R [id number] Date(s): 07/09/21 - 07/16/21 [facility] [address] [place] [address]- Attending Physician: Bo Daniel MD Allergies, Adverse [...] oldest [Reference Range]: 1 Height 171 cm (07/09/21 11:24 AM) Weight 104.3 kg (07/09/21 11:24 AM) Body Mass Index [18.5-24.99] 35.67 *>HHI* (07/09/21 11:24 AM) Blood Pressure [90-138/55-84 mm Hg] 124/ 72mm Hg (07/09/21 11:24 AM) Blood pressure sites Arm, right (07/09/21 11:24 AM) Weight Obtained Via Standing scale (07/09/21 11:24 AM) Social History Social History Type Response Smoking Status Never (less than 100 in lifetime) entered on: 12/03/20 Sex
--- OUTSIDE RECORDS SUMMARY | 2024-02-01 15:52 | XMS_ITS | Continuity of Care Document ---
Author Organization [facility] Address [address] [place] [address]- Care Team Providers Care Maintenance Technician Name Role Phone Bhavna Rios NP Primary Care Physician [phone] [place] [facility] [place] [id number] Date(s): 04/01/21 - 04/08/21 [facility] [address] [place], [place] [address] Attending Physician: Not on Staff, Attending MD Referring Physician: Charis Cabral MD Allergies, Adverse Reactions, [...]
--- OUTSIDE RECORDS SUMMARY | 2024-02-01 15:52 | XMS_ITS | Continuity of Care Document ---
Author Organization [facility] Address [address] [place] [address]- Care Team Providers Care Rotor Casting Machine Setup Operator Name Role Phone Bhavna Rios NP Primary Care Physician [facility] [facility] [place] 01/19/21 - 01/26/21 [facility] [address] [place], [place] [address] Attending Physician: Tania Ricks MD Allergies, Adverse [...] oldest [Reference Range]: 1 Height 171 cm (01/19/21 11:14 AM) Weight 76.9 kg (01/19/21 11:14 AM) Body Mass Index [18.5-24.99] 26.3 *H* (01/19/21 11:14 AM) Blood Pressure [90-138/55-84 mm Hg] 110/ 66mm Hg (01/19/21 11:14 AM) Blood pressure sites Arm, right (01/19/21 11:14 AM) Social History Social History Type Response Smoking Status Never (less than 100 in lifetime) entered on: 12/03/20 Sex
--- OUTSIDE RECORDS SUMMARY | 2024-02-01 15:52 | XMS_ITS | Continuity of Care Document ---
Author Organization [facility] Address [address] [place] [address]- Care Team Providers Care Unit Trust Manager Name Role Phone Bhavna Rios NP Primary Care Physician Encounter [facility] [place] Date(s): 07/09/21 - 07/16/21 [facility] [address] [place] [address] Attending Physician: Not on Staff, Attending MD Referring Physician: Allison SANTIZO, Ariana Sotomayor Allergies, Adverse Reactions, Alerts No Known Allergies [...]
--- OUTSIDE RECORDS SUMMARY | 2024-02-01 15:52 | XMS_ITS | Continuity of Care Document ---
Author Organization [facility] Address [address] [place] [address]- Care Team Providers Care Railroad Crane Operator Name Role Phone Bhavna Rios NP Primary [id number] - 04/09/21 [facility] [address] [place] [address]- Attending Physician: Taya Moyer MD Referring Physician: Not on Staff, Referring MD Allergies, Adverse Reactions, Alerts Substance Reaction [...] oldest [Reference Range]: 1 Height 171 cm (04/02/21 11:08 AM) Weight 85.7 kg (04/02/21 11:08 AM) Body Mass Index [18.5-24.99] 29.31 *H* (04/02/21 11:08 AM) Blood Pressure [90-138/55-84 mm Hg] 112/ 66mm Hg (04/02/21 11:08 AM) Blood pressure sites Arm, right (04/02/21 11:08 AM) Dry Weight 85.7 kg (04/02/21 11:08 AM) Weight Obtained Via Standing scale (04/02/21 11:08 AM) Dry Weight Obtained Via Standing scale (04/02/21 11:08 AM) Social History Social History Type Response Smoking Status Never (less than 100 in lifetime) entered on: 12/03/20 Sex
--- OUTSIDE RECORDS SUMMARY | 2024-02-01 15:52 | XMS_ITS | Continuity of Care Document ---
Author Organization [facility] Address [address] [place] [address]- Care Team Providers Care Developmental Psychologist Name Role Phone Bhavna Rios NP Primary Care Physician [place] [facility] [place]s): 03/19/21 - 04/18/21 [facility] [address] [place] [address] Attending Physician: Mallory Tinoco Admitting Physician: Mallory Tinoco Referring Physician: AdmtrMallory Allergies, Adverse Reactions, Alerts Substance Reaction Severity [...]
--- OUTSIDE RECORDS SUMMARY | 2024-02-01 15:52 | XMS_ITS | Continuity of Care Document ---
Author Organization [facility] Address [address] [place] [address]- Care Team Providers Care Scouts Name Role Phone Bhavna Rios NP Primary Care Physician [phone] Encounter [facility] [place] Date(s): 12/10/20 - 12/17/20 [facility] [address] [place], [place] [address] Attending Physician: Not on Staff, Attending MD Allergies, Adverse Reactions, Alerts Substance Reaction [...] oldest [Reference Range]: 1 Height 171 cm (12/10/20 10:12 AM) Weight 75 kg (12/10/20 10:12 AM) Body Mass Index [18.5-24.99] 25.65 *H* (12/10/20 10:12 AM) Dry Weight 75 kg (12/10/20 10:12 AM) Social History Social History Type Response Smoking Status Never (less than 100 in lifetime) entered on: 12/03/20 Sex
--- OUTSIDE RECORDS SUMMARY | 2024-02-01 15:52 | XMS_ITS | Continuity of Care Document ---
Author Organization [facility] Address [address] [place] [address]- Care Team Providers Care Wellness Specialist Name Role Phone Bhavna Rios NP Primary Care Physician En[place] [facility] [place] Date(s): 01/19/21 - 04/18/21 [facility] [address] [place] [id number] Attending Physician: Not on [...]
--- OUTSIDE RECORDS SUMMARY | 2024-02-01 15:52 | XMS_ITS | Continuity of Care Document ---
Author Organization [facility] Address [address] [place] [address]- Care Team Providers Care Metal Model Maker Name Role Phone Bhavna Rios NP Primary Care Physician Encounter [facility] [place] Date(s): 09/12/22 - 10/12/22 [facility] [address] [place] [address]- Allergies, Adverse Reactions, Alerts No Known Allergies [...] give 325mg per patient preference and re-dose [id number] within 4 hours, if needed. Patient should [...] Team Personnel Name: Tania Ricks MD Position: [facility] ROPE TIER MD Member Role: Lifetime ROPE TIER Physician Address: Address: [address] [place] [address] [facility] [employer] [place], [place] [address] Name: Bhavna Rios NP Position: [facility] Associate Professional Member Role: PCP Address: Address: [address] [place] [address] [place], [place] [address] Care Team Related Persons Name: PHUC STUBBS Address: home [address] [place] [id number] Name: BRIA CRONIN Address: [employer] Address: home [address] [place] [address]
--- OUTSIDE RECORDS SUMMARY | 2024-02-01 15:52 | XMS_ITS | Continuity of Care Document ---
Author Organization [facility] Address [address] [place] [address]- Care Team Providers Care Line O Scribe Operator Name Role Phone Bhavna Rios NP Primary Care Physician Encounter [facility] [place] Date(s): 09/08/21 - 09/15/21 [facility] [address] [place] [address]- Attending Physician: Allison SANTIZO, Ariana Sotomayor Allergies, [...] give 325mg per patient preference and re-dose [id number] within 4 hours, if needed. Patient should [...] recent to oldest [Reference Range]: 1 Height 169 cm (09/08/21 10:24 AM) Weight 88.1 kg (09/08/21 10:24 AM) Body Mass Index [18.5-24.99] 30.85 *>HHI* (09/08/21 10:24 AM) Blood Pressure [90-138/55-84 mm Hg] 104/ 66mm Hg (09/08/21 10:24 AM) Blood pressure sites Arm, right (09/08/21 10:24 AM) Weight Obtained Via Standing scale (09/08/21 10:24 AM) Social History Social History Type Response Smoking Status Never (less than 100 in lifetime) entered on: 12/03/20 Sex
--- OUTSIDE RECORDS SUMMARY | 2024-02-01 15:52 | XMS_ITS | Continuity of Care Document ---
Author Organization [facility] ter Address [address] [place] [address]- Care Team Providers Care Economics Department Chair Name Role Phone Gabriel AGUIRRE, Bhavna Primary Care Physician [phone] Encounter [facility] [place] Date(s): 07/23/21 - 07/23/[address] [id number] Discharge Disposition: A-D/C Home Attending Physician: Nisreen Price MD Admitting Physician: Nisreen Price MD Referring Physician: Nisreen Price MD Allergies, Adverse Reactions, Alerts No Known [...] Seasonal allergies(Confirmed) Active Maternal varicella, non-immune(Confirmed) Active Procedures Procedure Date Related Diagnosis Body Site Status Extraction of wisdom tooth Completed Vital Signs Most recent to oldest [Reference Range]: 1 2 3 Weight 106.5 kg (07/23/21 3:52 PM) Blood Pressure [90-138/55-84 mm Hg] 119/73mm Hg (07/23/21 6:45 PM) 112/74mm Hg (07/23/21 6:30 PM) 108/67mm Hg (07/23/21 6:15 PM) Respiratory Rate [16-30 br/min] 18 br/min (07/23/21 4:20 PM) Temperature [96.8-100.4 DegF] 98.4 DegF (07/23/21 3:52 PM) Blood pressure sites Arm, right (07/23/21 6:45 PM) Arm, right (07/23/21 6:30 PM) Arm, right (07/23/21 6:15 PM) Temperature Route Oral (07/23/21 3:52 PM) Dry Weight 106.5 kg (07/23/21 3:52 PM) Social History Social History Type Response Smoking Status Never (less than 100 in lifetime) entered on: 12/03/20 Sex
--- OUTSIDE RECORDS SUMMARY | 2024-02-01 15:52 | XMS_ITS | Continuity of Care Document ---
Author Organization [facility] Address [address] [place] [address]- Care Team Providers Care Knitting Machine Fixer Head Name Role Phone Bhavna Rios NP Primary Care Physician Encounter [facility] [place] Date(s): 01/19/21 - 04/18/21 [facility] [address] [place], [place] [address] Attending Physician: Bo Daniel MD Allergies, Adverse [...]
--- OUTSIDE RECORDS SUMMARY | 2024-02-01 15:52 | XMS_ITS | Continuity of Care Document ---
Author Organization [facility] Address [address] [place] [address], [place], [place] [address]- Care Team Providers Care Java Designer Name Role Phone Bhavna Rios NP Primary Care Physician Encounter [facility] Date(s): 12/09/20 - 01/08/21 [facility] [address] [facility] [place], [place] [address] Allergies, Adverse Reactions, Alerts Substance Reaction [...]
--- OUTSIDE RECORDS SUMMARY | 2024-02-01 15:52 | XMS_ITS | Continuity of Care Document ---
Author Organization [facility] Address [address] [place] [address]- Care Team Providers Care Software Sales Name Role Phone Gabriel AGUIRRE, Bhavna Primary Care Physician [place] [facility] 06/15/21 - 06/22/21 [facility] [address] [place] [address] [address] Attending Physician: Not on Staff, Attending MD Referring Physician: Taya Moyer MD Allergies, Adverse Reactions, [...]
--- OUTSIDE RECORDS SUMMARY | 2024-02-01 15:52 | XMS_ITS | Continuity of Care Document ---
Author Organization [facility] Address [address] [place] [address]- Care Team Providers Care Milling Operator Name Role Phone Bhavna Rios NP Primary Care Physician [phone] Encounter [facility] [place] [id number] Date(s): 12/03/20 - 01/17/21 [facility] [address] [place] [address]- Attending Physician: Bo Daniel MD Allergies, Adverse [...]
--- OUTSIDE RECORDS SUMMARY | 2024-02-01 15:52 | XMS_ITS | Continuity of Care Document ---
Author Organization [facility] Address [address] [place] [address]- Care Team Providers Care Inhalation Therapist Name Role Phone Bhavna Rios NP Primary Care Physician Encounter [facility] [place] Date(s): 02/05/21 - 03/07/21 [facility] [address] [place], [place] [address] Allergies, Adverse Reactions, Alerts Substance Reaction [...]
--- OUTSIDE RECORDS SUMMARY | 2024-02-01 15:52 | XMS_ITS | Continuity of Care Document ---
Author Organization [facility] Address [address] [place] [address]- Care Team Providers Care Linotyper Name Role Phone Bhavna Rios NP Primary Care Physician Encounter [facility] Date(s): 03/31/21 - 04/30/21 [facility] [address] [place], [place] [address] Allergies, Adverse Reactions, Alerts Substance Reaction Severity [...]
--- OUTSIDE RECORDS SUMMARY | 2024-02-01 15:52 | XMS_ITS | Continuity of Care Document ---
Author Organization [facility] Address [address] [place] [address]- Care Team Providers Care Adhesive Bandage Making Operator Name Role Phone Bhavna Rios NP Primary Care Physician [phone] [place] [facility] [place] 06/03/21 - 07/03/21 [facility] [address] [place] [address]- Allergies, Adverse Reactions, Alerts Substance Reaction Severity [...]
--- OUTSIDE RECORDS SUMMARY | 2024-02-01 15:52 | XMS_ITS | Continuity of Care Document ---
Author Organization [facility] Address [address] [place] [address]- Care Team Providers Care Nail Tech Name Role Phone Bhavna Rios NP Primary Care Physician Encounter [facility] [place] Date(s): 08/09/21 - 08/16/21 [facility] [address] [place] [address]- Attending Physician: Charis Cabral MD Allergies, Adverse Reactions, Alerts No Known [...] give 325mg per patient preference and re-dose [id number] within 4 hours, if needed. Patient should [...] Active Obese class II(Confirmed) Active Overweight(Confirmed) Active state(Confirmed) Active Right upper quadrant pain(Confirmed) Active Seasonal allergies(Confirmed) Active Maternal varicella, non-immune(Confirmed) Active Social History Social History Type Response Smoking Status Never (less than 100 in lifetime) entered on: 12/03/20 Sex
--- OUTSIDE RECORDS SUMMARY | 2024-02-01 15:52 | XMS_ITS | Continuity of Care Document ---
Author Organization [facility] Address [address] [place] [address]- Care Team Providers Care Carbon Cleaner Name Role Phone Bhavna Rios NP Primary Care Physician [phone] Encounter [facility] [place] Date(s): 04/23/21 - 05/23/21 [facility] [address] [place], [place] [address] Allergies, Adverse Reactions, Alerts [...]
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
== END 2024-02-01 17:08 | disposition home or self-care (01) ==
LOC: HO.HOP 15:49
PROVIDERS: Visit Provider Clinical Nurse Specialist Psychiatric/Mental Health
DX: F33.1 Major depressive disorder, recurrent, moderate (principal); F41.1 Generalized anxiety disorder; F41.0 Panic disorder [episodic paroxysmal anxiety]
CPT/HCPCS: 90792

== ENCOUNTER → 2024-02-01 15:49 | Outpatient (BNVA) | payer OTHER, SELFPAY | PROVIDERS: Visit Provider Clinical Nurse Specialist Psychiatric/Mental Health | DX: F33.1 Major depressive disorder, recurrent, moderate (principal); F41.1 Generalized anxiety disorder; F41.0 Panic disorder [episodic paroxysmal anxiety] | CPT/HCPCS: 90792 ==

== ENCOUNTER 2024-03-19 09:31 | Outpatient (AMB) | payer OTHER, SELFPAY ==
--- NOTE | 2024-03-19 09:32 | MHC.PC.OV ---
Intake Visit Reasons: 2 month follow up Allergies No Known Allergies Allergy (Verified 01/23/24 09:19) Tobacco use date assessed: 01/23/24 Dental Screening Dental Screen Date: 01/23/24 [facility] Surgical History [place] teeth removed Family History Mother Breast cancer Maternal Grandfather Lung cancer Paternal Grandfather Lung cancer Social History Housing: Apartment Patient Tobacco Use Status: Never used Tobacco e-Cigarette/Vaping Use: Former Use service: No Current occupational status: employed Cognitive needs: No Hearing needs: No Vision needs: No Questionnaire Thrive Questionnaire Date Thrive assessed: 01/23/24 Are you currently unemployed and looking for a job?: No JASE-7 AMB Questionnaire JASE-7 Date JASE - 7 assessed: 01/23/24 Source: Developed by Drs. Rigoberto Graham, Danyell Marquez, Gilmar Mandujano and colleagues, with an educational parth from [employer]. Physical exam (Primary Care) Tobacco/Smoking Status: Tobacco use Status Tobacco use date assessed 01/23/24 01/23/24 09:14 Patient Tobacco Use Status Never used Tobacco 01/23/24 09:19 e-Cigarette/Vaping Use Former Use 01/23/24 09:24 Thrive Assessment: Date of Thrive Assessment Date Thrive assessed 01/23/24 01/23/24 09:14 Coding
--- NOTE | 2024-03-19 09:32 | MHC.PC.OV ---
Vital Signs 03/19/24 09:33 Height 5 ft 8 in Weight 145 lb BMI 22.0 BP 110/72 Blood Pressure Location Lt brachial Position Sitting Pulse 76 Pulse Source Pulse Oximeter Pulse Oximetry (%) 98 Oxygen Delivery Method Room Air Intake Visit Reasons: 2 month follow up Intake Note: Patient here for a 2 month follow up Meter Installer Required: No Accompanied by: Self / Same As Patient Allergies No Known Allergies Allergy (Verified 03/19/24 09:36) Medication List - Last Reconciled 03/19/24 by Christine Sebastian PA-C norethindrone (contraceptive) 0.35 mg PO DAILY sertraline (Zoloft) 50 mg PO DAILY trazodone 50 mg PO BEDTIME PRN Tobacco use date assessed: 01/23/24 Dental Screening Dental Screen Date: 01/23/24 HPI 2 month follow up HPI Details 23 year old female with past history depression and generalized anxiety disorder coming in for follow up. Patient was seen by outpatient psych provider and started on Sertraline and Trazodone. Today she tells us she feels the sertraline has not had much effect on her depression and anxiety but does feel good relief with sleep from trazodone. She does not feel her symptoms are well managed and spoke with psychiatry who referred her back to our office for further management. [facility] Surgical History [place] teeth removed Family History Mother Breast cancer Maternal Grandfather Lung cancer Paternal Grandfather Lung cancer Social History Housing: Apartment Patient Tobacco Use Status: Never used Tobacco e-Cigarette/Vaping Use: Former Use Second Hand Smoke Exposure: No service: No Current occupational status: employed Cognitive needs: No Hearing needs: No Vision needs: No Questionnaire Thrive Questionnaire Date Thrive assessed: 01/23/24 Are you currently unemployed and looking for a job?: No JASE-7 AMB Questionnaire JASE-7 Date JASE - 7 assessed: 01/23/24 Source: Developed by Drs. Rigoberto Graham, Danyell Marquez, Gilmar Mandujano and colleagues, with an educational parth from [employer]. Review of Systems Const Denies chills and Denies fever(s) Eyes Reports no additional complaints ENT Reports no additional complaints Card Denies chest pain, Denies leg edema and Denies dyspnea Resp Denies dyspnea GI Reports no additional complaints Skin/Breast Reports change in hair (Thinning) Physical exam (Primary Care) Vital Signs: Last Vital Signs Pulse 76 03/19/24 09:33 BP 110/72 03/19/24 09:33 Pulse Ox 98 03/19/24 09:33 Oxygen Delivery Method Room Air 03/19/24 09:33 BMI result Body Mass Index 22.0 Tobacco/Smoking Status: Tobacco use Status Tobacco use date assessed 01/23/24 03/19/24 09:40 Patient Tobacco Use Status Never used Tobacco 03/19/24 09:40 e-Cigarette/Vaping Use Former Use 03/19/24 09:40 Thrive Assessment: Date of Thrive Assessment Date Thrive assessed 01/23/24 03/19/24 09:40 Const General: cooperative, healthy appearing, comfortable and no acute distress Orientation/consciousness: patient oriented x3 HENMT Head: Yes normocephalic Ears: hearing grossly normal bilaterally General nose exam: Normal external nose present Eyes General: appearance normal, both eyes and all related structures Conjunctivae: conjunctivae normal Neck Neck: Yes full ROM and Yes no lymphadenopathy Resp Effort & Inspection: normal respiratory effort Auscultation: clear to auscultation bilaterally, no crackles, no rales, no rhonchi and no wheezes Cardio Rate: regular rate Rhythm: regular rhythm Skin General skin exam: no rashes or lesions noted Neuro General: patient oriented x3 Gait exam (Neuro): Normal gait present Extrem General: Yes normal to inspection, Yes full ROM and No edema Psych Affect: normal affect Attitude: cooperative Insight: Good insight present (Psych) Judgement: Good judgement present (Psych) Assessment and Plan Assessment & Plan (1) Generalized anxiety disorder with panic attacks: Code(s): F41.1 - Generalized anxiety disorder; F41.0 - Panic disorder [episodic paroxysmal anxiety] Plan: We will increase sertraline to 75 mg daily and follow up in 2 months. (2) Major depressive disorder, recurrent, moderate: Code(s): F33.1 - Major depressive disorder, recurrent, moderate Plan: We will increase sertraline to 75 mg daily and follow up in 2 months. (3) Insomnia: Code(s): G47.00 - Insomnia, unspecified Plan: Continue on trazodone 50 mg. (4) Hair thinning: Code(s): L65.9 - Nonscarring hair loss, unspecified Plan: Feels like her hair has been thinning and falling out for frequently. Ordered for electrolytes and vitamin levels advised patient to use [id number] hair/skin/nails vitamins. Plan This note was constructed using voice recognition software. While every effort has been made to ensure accuracy and clerical support specialist, still areas may have been included sometimes these areas may affect the content or meeting of the given symptoms. Total time spent caring for the patient today was 20 minutes. This includes time spent before the visit reviewing the chart, time spent during the visit, and time spent after the visit and documentation. Orders: Orders Vitamin B12 and Folate Today Z00.00 - Encounter for general adult medical examination without abnormal findings Vitamin D 25-OH (D2 and D3) Today Z00.00 - Encounter for general adult medical examination without abnormal findings IRON PROFILE Today Z00.00 - Encounter for general adult medical examination without abnormal findings Medications: New sertraline (Zoloft) 25 mg PO DAILY 30 tabs 2RF Refilled sertraline (Zoloft) take with food 50 mg PO DAILY 90 tabs 1RF Coding Level of Care Code Est Pt Level 3 (82240) Diagnoses Generalized anxiety disorder with panic attacks F41.1; F41.0 Major depressive disorder, recurrent, moderate F33.1 Insomnia G47.00 Hair thinning L65.9
[2024-03-19 09:33] VITALS: BP 110/72; PULSE 76; O2SAT 98; BMI 22.0
== END 2024-03-19 09:58 | disposition home or self-care (01) ==
DX: F41.1 Generalized anxiety disorder (principal); F41.0 Panic disorder [episodic paroxysmal anxiety]; F33.1 Major depressive disorder, recurrent, moderate; G47.00 Insomnia, unspecified; L65.9 Nonscarring hair loss, unspecified

== ENCOUNTER → 2024-03-19 09:31 | Outpatient (BNVA) | payer OTHER, SELFPAY | DX: F41.1 Generalized anxiety disorder (principal); F41.0 Panic disorder [episodic paroxysmal anxiety]; F33.1 Major depressive disorder, recurrent, moderate; G47.00 Insomnia, unspecified; L65.9 Nonscarring hair loss, unspecified; Z79.899 Other long term (current) drug therapy ==

== ENCOUNTER 2024-05-27 10:36 | Outpatient (AMB) | payer OTHER, SELFPAY ==
[2024-05-27 10:38] VITALS: BP 110/68; PULSE 69; O2SAT 98; BMI 23.3
--- NOTE | 2024-05-27 10:38 | MHC.PC.OV ---
Vital Signs 05/27/24 10:38 Height 5 ft 8 in Weight 153 lb BMI 23.3 BP 110/68 Blood Pressure Location Lt brachial Position Sitting Pulse 69 Pulse Source Pulse Oximeter Pulse Oximetry (%) 98 Oxygen Delivery Method Room Air Intake Visit Reasons: f/u depression and anxiety Intake Note: Patient is here to follow up on depression/anxiety Livestock Showman Required: No Allergies No Known Allergies Allergy (Verified 05/27/24 10:38) Medication List - Last Reconciled 05/27/24 by Christine Sebastian PA-C norethindrone (contraceptive) 0.35 mg PO DAILY sertraline 25 mg PO DAILY sertraline (Zoloft) 50 mg PO DAILY trazodone 50 mg PO BEDTIME PRN Tobacco use date assessed: 01/23/24 Dental Screening Dental Screen Date: 01/23/24 HPI f/u depression and anxiety HPI Details 24-year-old female with past medical history of generalized anxiety disorder, depression and panic attacks last seen February 2024 coming in for follow up. Patient feels like the sertraline is no longer helping her and she has been gaining weight due to appetite stimulation. She feels the trazodone is working at nighttime and is sleeping better. She has been on a wait list for a counselor and we will begin working with them this month. Feels her anxiety and depression is still very high. [facility] Surgical History [place] teeth removed Family History Mother Breast cancer Maternal Grandfather Lung cancer Paternal Grandfather Lung cancer Social History Housing: Apartment Patient Tobacco Use Status: Never used Tobacco e-Cigarette/Vaping Use: Former Use Second Hand Smoke Exposure: No service: No Current occupational status: employed Cognitive needs: No Hearing needs: No Vision needs: No Questionnaire PHQ-9 Over the last 2 weeks, how often have you been bothered by any of the following problems? 1. Little interest or pleasure in doing things: more than half the days 2. Feeling down, depressed, or hopeless: more than half the days 3. Trouble falling or staying asleep, or sleeping too much: several days 4. Feeling tired or having little energy: more than half the days 5. Poor appetite or overeating: more than half the days 6. Feeling bad about yourself - or that you are a failure or have let yourself or your family down: more than half the days 7. Trouble concentrating on things, such as reading the newspaper or watching television: not at all 8. Moving or speaking so slowly that other people could have noticed. Or the opposite - being so fidgety or restless that you have been moving around a lot more than usual: not at all 9. Thoughts that you would be better off or of hurting yourself in some way: not at all Total score: 11 Depression Screening Interpretation: Positive Depression Screening Done: Yes 67023 - PHQ-9 Billing: Yes Source: Developed by Drs. Rigoberto Graham, Danyell Marquez, Gilmar Mandujano and colleagues, with an educational parth from [employer]. Thrive Questionnaire Date Thrive assessed: 01/23/24 Are you currently unemployed and looking for a job?: No AUDIT C Alcohol Use Questionnaire (AUDIT-C) 1. How often do you have a drink containing alcohol?: Never 3. How often do you have six or more drinks on one occasion?: Never Total Score: 0 JASE-7 AMB Questionnaire JASE-7 Date JASE - 7 assessed: 05/27/24 Feeling nervous, anxious, or on edge: 2 = More than half the days Not being able to stop or control worryin = More than half the days Worrying too much about different things: 2 = More than half the days Trouble relaxin = Not at all Being so restless that it is hard to sit still: 0 = Not at all Becoming easily annoyed or irritable: 2 = More than half the days Feeling afraid as if something awful might happen: 1 = Several days Total JASE-7 score (0-4 normal; 5-9 mild; 10-14 moderate; 15-21 severe): 9 Source: Developed by Drs. Rigoberto Graham, Danyell Marquez, Gilmar Mandujano and colleagues, with an educational parth from [employer]. JASE-7 Assessment Billing JASE-7 Assessment Tool: JASE-7 Assessment 01455 Review of Systems Const Denies anorexia, Denies body aches, Denies chills and Denies fever(s) Eyes Reports no additional complaints ENT Reports no additional complaints Card Denies chest pain, Denies syncope, Denies leg edema, Denies lightheadedness and Denies dyspnea Resp Denies dyspnea GI Denies abdominal pain, Denies diarrhea, Denies nausea and Denies vomiting Reports no additional complaints Musc Reports no additional complaints Neuro Denies syncope Psych Reports anxiety and Reports depression Physical exam (Primary Care) Vital Signs: Last Vital Signs Pulse 69 05/27/24 10:38 BP 110/68 05/27/24 10:38 Pulse Ox 98 05/27/24 10:38 Oxygen Delivery Method Room Air 05/27/24 10:38 BMI result Body Mass Index 23.3 Tobacco/Smoking Status: Tobacco use Status Tobacco use date assessed 01/23/24 05/27/24 10:39 Patient Tobacco Use Status Never used Tobacco 05/27/24 10:39 e-Cigarette/Vaping Use Former Use 05/27/24 10:39 PHQ-9: PHQ-9 Score PHQ-9: Total score 11 05/27/24 10:55 Depression Screening Interpretation: Positive Thrive Assessment: Date of Thrive Assessment Date Thrive assessed 01/23/24 05/27/24 10:39 Const General: cooperative, healthy appearing, comfortable and no acute distress Orientation/consciousness: patient oriented x3 HENMT Head: Yes normocephalic Ears: hearing grossly normal bilaterally General nose exam: Normal external nose present Eyes General: appearance normal, both eyes and all related structures Conjunctivae: conjunctivae normal Neck Neck: Yes full ROM and Yes no lymphadenopathy Resp Effort & Inspection: normal respiratory effort Auscultation: clear to auscultation bilaterally, no crackles, no rales, no rhonchi and no wheezes Cardio Rate: regular rate Rhythm: regular rhythm Skin General skin exam: no rashes or lesions noted Neuro General: patient oriented x3 Gait exam (Neuro): Normal gait present Extrem General: Yes normal to inspection, Yes full ROM and No edema Psych Affect: normal affect Attitude: cooperative Insight: Good insight present (Psych) Judgement: Good judgement present (Psych) Coding Level of Care Code Est Pt Level 4 (30494) Diagnoses Generalized anxiety disorder with panic attacks F41.1; F41.0 Major depressive disorder, recurrent, moderate F33.1 Insomnia G47.00 Additional Codes JASE-7 Assessment Billing - JASE-7 Assessment Tool: JASE-7 Assessment 05105 ([id number]) PHQ-9 - 50097 - PHQ-9 Billing: Yes ([id number]) Assessment & Plan Assessment & Plan (1) Generalized anxiety disorder with panic attacks: Code(s): F41.1 - Generalized anxiety disorder; F41.0 - Panic disorder [episodic paroxysmal anxiety] Category: Medical Plan: Feels sertraline is not working well discussed tapering and discontinuation. We will trial citalopram. (2) Major depressive disorder, recurrent, moderate: Code(s): F33.1 - Major depressive disorder, recurrent, moderate Category: Medical Plan: Feels her depression is not well managed on the sertraline. Discuss tapering method to discontinue sertraline. We will trial citalopram 10 mg and advised patient to leave 3-4 days between SSRIs to prevent interaction patient understands. If citalopram does not work we will refer back to Psychiatry. (3) Insomnia: Code(s): G47.00 - Insomnia, unspecified Category: Medical Plan: Currently on trazodone and feels this is working well for her insomnia. Plan This note was constructed using voice recognition software. While every effort has been made to ensure accuracy and transportation analyst, still areas may have been included sometimes these areas may affect the content or meeting of the given symptoms. Total time spent caring for the patient today was 20 minutes. This includes time spent before the visit reviewing the chart, time spent during the visit, and time spent after the visit and documentation. Medications: New citalopram 10 mg PO DAILY 30 tabs 2RF Discontinued sertraline Discontinued Reason: Patient no longer taking 25 mg PO DAILY 90 tabs 1RF sertraline take with food Discontinued Reason: Patient no longer taking 50 mg PO DAILY 90 tabs 1RF
== END 2024-05-27 11:10 | disposition home or self-care (01) ==
DX: F41.1 Generalized anxiety disorder (principal); F41.0 Panic disorder [episodic paroxysmal anxiety]; F33.1 Major depressive disorder, recurrent, moderate; G47.00 Insomnia, unspecified

== ENCOUNTER → 2024-05-27 10:36 | Outpatient (BNVA) | payer OTHER, SELFPAY | DX: F41.1 Generalized anxiety disorder (principal); F41.0 Panic disorder [episodic paroxysmal anxiety]; F33.1 Major depressive disorder, recurrent, moderate; G47.00 Insomnia, unspecified | CPT/HCPCS: 96127; 99212 ==

== ENCOUNTER 2024-07-05 14:12 | Outpatient (REF) | payer OTHER, SELFPAY ==
[2024-07-08 09:19] LABS: TS Negative Control Passed; TS Panel A 0; TS Panel B 0; TS Positive Control Passed; TSpotTB Negative (Negative)
== END 2024-07-05 14:13 | disposition home or self-care (01) ==
LOC: HO.WFDLDS 14:12
DX: Z00.00 Encounter for general adult medical examination without abnormal findings (principal); Z11.7 Encounter for testing for latent tuberculosis infection
CPT/HCPCS: 36415; 86481

== ENCOUNTER 2024-07-29 16:16 | Outpatient (AMB) | payer OTHER, SELFPAY ==
--- NOTE | 2024-07-29 15:58 | A.OFFPC_ITS ---
Intake Visit Reasons: f/u depression telehealth See Wheeler Required: No Mine Foreman: Not Required per policy Accompanied by: Self / Same As Patient Allergies No Known Allergies Allergy (Verified 07/29/24 16:19) Medication List - Last Reconciled 07/29/24 by Christine Sebastian PA-C citalopram 20 mg PO DAILY norethindrone (contraceptive) 0.35 mg PO DAILY trazodone 50 mg PO BEDTIME PRN Tobacco use date assessed: 07/29/24 Dental Screening Dental Screen Date: 07/29/24 Did you have a dental visit in the last 12 months?: Yes Did you have a dental problem in the last 6 months where you did not have access to dental care?: No Was dental information given to patient?: Patient has dentist HPI f/u depression telehealth HPI Details 24-year-old female with past medical his tory of generalized anxiety disorder, depression and panic attacks last seen 05/2024 coming in for follow up on depression and anxiety.? At her last visit, citalopram was started after discontinuing sertraline and continued on trazodone. Patient tells us today the Citalopram has been much better than the Sertraline however she feels she should be on a higher dose. She continues to use Trazodone with good effect for sleep. She is no longer working at this time which has been a stress relief. She also mentions having flu-like symptoms which began last and her daughter is also sick at home. She was tested for COVID and daughter was tested for flu and both were negative. She has sinus pressure, headaches, congestion and green phlegm. [facility] Surgical History [place] teeth removed Family History Mother Breast cancer Maternal Grandfather Lung cancer Paternal Grandfather Lung cancer Social History Housing: Apartment Patient Tobacco Use Status: Never used Tobacco e-Cigarette/Vaping Use: Former Use Second Hand Smoke Exposure: No service: No Current occupational status: employed Cognitive needs: No Hearing needs: No Vision needs: No Questionnaire PHQ-9 Over the last 2 weeks, how often have you been bothered by any of the following problems? 1. Little interest or pleasure in doing things: not at all 2. Feeling down, depressed, or hopeless: not at all 3. Trouble falling or staying asleep, or sleeping too much: not at all 4. Feeling tired or having little energy: not at all 5. Poor appetite or overeating: not at all 6. Feeling bad about yourself - or that you are a failure or have let yourself or your family down: not at all 7. Trouble concentrating on things, such as reading the newspaper or watching television: not at all 8. Moving or speaking so slowly that other people could have noticed. Or the opposite - being so fidgety or restless that you have been moving around a lot more than usual: not at all 9. Thoughts that you would be better off or of hurting yourself in some way: not at all Total score: 0 Depression Screening Interpretation: Negative Depression Screening Done: Yes Source: Developed by Drs. Rigoberto Graham, Danyell Marquez, Gilmar Mandujano and colleagues, with an educational parth from [employer] Thrive Questionnaire Date Thrive assessed: 07/29/24 I am a: Patient What is your living situation today?: I have a steady place to live Within the past 12 months, did the food you bought not last and you didn't have the money to get more?: Never true Within the past 12 months, did you worry whether your food would run out before you got money to buy more?: Never true Do you have trouble paying for medicines?: No Do you have trouble getting transportation to medical appointments?: No Do you have trouble paying your heating and electricity bill?: No Do you have trouble taking care of your child, family member or friend?: No Do you have trouble with day-to-day activities such as bathing, preparing meals, shopping, managing finances, etc.?: No Are you currently unemployed and looking for a job?: No Are you interested in more education?: No Please select the resources that you would like help with: None Currently or been in a relationship where the following occur: No concerns reported THRIVE Score: 0 AUDIT C Alcohol Use Questionnaire (AUDIT-C) 1. How often do you have a drink containing alcohol?: Never 3. How often do you have six or more drinks on one occasion?: Never Total Score: 0 JASE-7 AMB Questionnaire JASE-7 Date JASE - 7 assessed: 07/29/24 Feeling nervous, anxious, or on edge: 0 = Not at all Not being able to stop or control worryin = Not at all Worrying too much about different things: 0 = Not at all Trouble relaxin = Not at all Being so restless that it is hard to sit still: 0 = Not at all Becoming easily annoyed or irritable: 0 = Not at all Feeling afraid as if something awful might happen: 0 = Not at all Total JASE-7 score (0-4 normal; 5-9 mild; 10-14 moderate; 15-21 severe): 0 Source: Developed by Drs. Rigoberto Graham, Danyell Marquez, Gilmar Mandujano and colleagues, with an educational parth from [employer] Review of Systems Const Denies body aches, Denies chills, Denies fever(s), Denies headache(s) and Denies poor appetite Eyes Reports no additional complaints ENT Denies dizziness and Denies headache(s) Card Denies chest pain, Denies lightheadedness and Denies dyspnea Resp Denies cough and Denies dyspnea GI Denies abdominal pain, Denies nausea and Denies vomiting Reports no additional complaints Musc Reports no additional complaints and Denies abnormal gait Skin/Breast Reports system reviewed and no additional complaints, except as documented Neuro Denies abnormal gait, Denies dizziness and Denies headache(s) Psych Reports no additional complaints Physical exam (Primary Care) Vital Signs: physical exam not completed due to nature of telehealth visit Tobacco/Smoking Status: Tobacco use Status Tobacco use date assessed 01/23/24 07/29/24 15:58 Patient Tobacco Use Status Never used Tobacco 07/29/24 15:58 e-Cigarette/Vaping Use Former Use 07/29/24 15:58 Depression Screening Interpretation: Negative Thrive Assessment: Date of Thrive Assessment Date Thrive assessed 01/23/24 07/29/24 15:58 Currently or been in a relationship where the following occur: No concerns reported Telehealth Telehealth Telehealth Platform: Telephone Location of provider rendering services: practice address Location of patient: address on file Patient Identification confirmed using: Name, : Yes Telehealth method: voice only Patient verbally consented to treatment: Yes Patient verbally consented to billing insurance company: Yes Patient informed of any privacy concerns related to visit: Yes Coding Level of Care Code Tele Est Pt Level 3 (09451) Diagnoses Generalized anxiety disorder with panic attacks F41.1; F41.0 Major depressive disorder, recurrent, moderate F33.1 Insomnia G47.00 Assessment & Plan Assessment & Plan (1) Generalized anxiety disorder with panic attacks: Code(s): F41.1 - Generalized anxiety disorder; F41.0 - Panic disorder [episodic paroxysmal anxiety] Category: Medical Plan: Will plan to increase Citalopram to 20mg at this time and follow up in two months via telehealth to see how she is doing on this medication. (2) Major depressive disorder, recurrent, moderate: Code(s): F33.1 - Major depressive disorder, recurrent, moderate Category: Medical Plan: Will plan to increase Citalopram to 20mg at this time and follow up in two months via telehealth to see how she is doing on this medication. (3) Insomnia: Code(s): G47.00 - Insomnia, unspecified Category: Medical Plan: Patient currently on Trazodone 50mg with good relief. Continue on this medication. Plan This note was constructed using voice recognition software. While every effort has been made to ensure accuracy and online marketing manager, still areas may have been included sometimes these areas may affect the content or meeting of the given symptoms. Total time spent caring for the patient today was 20 minutes. This includes time spent before the visit reviewing the chart, time spent during the visit, and time spent after the visit and documentation. Medications: New citalopram 20 mg PO DAILY 90 tabs 1RF Discontinued citalopram Discontinued Reason: Patient no longer taking 10 mg PO DAILY 30 tabs 2RF
--- OUTSIDE RECORDS SUMMARY | 2024-07-29 17:19 | XMS_ITS | Encounter Summary ---
Author Organization [facility] Address [address] [place] [address] Phone Care Team Providers Care Dried Fruit Washer Name Role Phone Bhavna Rios SOCIAL SECRETARY Primary Care Provider [phone] Reason for Visit * Reason Comments Med Refill Encounter Details Date Type Department Care Team (Late st Contact Info) Description 06/06/2019 Refill [facility] [place] [address] [place] [address] Bhavna Rios NP [address] [place] [address] Encounter for initial prescription of contraceptive pills Social History Tobacco Use Types Packs/Day Years Used Date Smoking Tobacco: Never Smokeless Tobacco: Never Alcohol Use Standard Drinks/Week Comments Yes 0 (1 standard drink = 0.6 oz pure alcohol) socially, denies binge drinking Hunger/Food Answer Date Recorded No 07/14/2018 Stable Housing Answer Date Recorded 0 07/14/2018 Transportation Concerns Answer Date Rec orded No 07/14/2018 Hazards in Home Answer Date Recorded No 07/14/2018 Financing Utilities Answer Date Recorde d No 07/14/2018 Safety at Home Answer Date Recorded No 07/14/2018 Outside Support Answer Date Recorded No 07/14/2018 Understanding Health Concerns Answer Da te Recorded No 07/14/2018 Financing Health Concerns Answer Date R ecorded No 07/14/2018 Missing School or Work Answer Date Shivam rded No 07/14/2018 Comments Unknown Sex and Gender Information Value Date Recorded Sex Assigned at Not on file Legal Sex Female 3:52 PM EST Gender Identity Female 05/28/2020 10:28 AM EST Sexual Orientation Straight 03/05/2019 9: 10 AM EDT documented as of this encounter Plan of Treatment Not on file documented as of this encounter Visit Diagnoses Diagnosis Encounter for initial prescription of contraceptive pills documented in this encounter Care Teams Dried Fruit Washer Relationship Specialty Start Date End Date Bhavna Rios NP [address] [place] [id number] PCP - General 08/16/16 05/04/23 documented as of this encounter
--- OUTSIDE RECORDS SUMMARY | 2024-07-29 17:19 | XMS_ITS | Encounter Summary ---
Author Organization [facility] Address [address] [place] [id number] Phone Care Team Providers Care Airways Control Specialist Name Role Phone Bhavna Rios NP Primary Care Provider [phone] Reason for Visit * Reason Comments Med Refill Encounter Details Date Type Department Care Team (Late st Contact Info) Description 09/10/2017 Refill [facility] [place] [address] [place] [address] Bhavna Rios NP [address] [place] [address] Encounter for initial prescription of contraceptive pills Social History Tobacco Use Types Packs/Day Years Used Date Smoking Tobacco: Never Smokeless Tobacco: Never Alcohol Use Standard Drinks/Week Comments Yes 0 (1 standard drink = 0.6 oz pure alcohol) Not recently, Drank while ago, No binge drinking Comments Unknown Sex and Gender Information Value [...] pills documented in this encounter Care Teams Airways Control Specialist Relationship Specialty Start Date End Date Bhavna Rios NP [address] [place] [address] PCP - General 2/21/17 11/9/23 documented as of this encounter
--- OUTSIDE RECORDS SUMMARY | 2024-07-29 17:19 | XMS_ITS | Encounter Summary ---
Author Organization [facility] Address [address] [place] [phone] Phone Care Team Providers Care Veneer Clipper Name Role Phone Bhavna Rios NP Primary Care Provider [phone] Encounter Details Date Type Department Care Team (Late st Contact Info) Description 02/01/2017 Conversion Encounter [facility] - [address], [address] [place] [address] Bhavna Rios NP [address] [place] [address] Social History Tobacco Use Types Packs/Day Years Used Date Smoking Tobacco: Never Assessed Comments Unknown Sex and Gender Information Value Date Recorded Sex Assigned at Not on file Legal Sex Female 3:52 PM EST Gender Identity Female 05/28/2020 10:28 AM EST Sexual Orientation Straight 03/05/2019 9: 10 AM EDT documented as of this encounter Plan of Treatment Not on file documented as of this encounter Visit Diagnoses Not on filedocumented in this encounter Care Teams Veneer Clipper Relationship Specialty Start Date End Date Bhavna Rios NP [address] [place] [address] PCP - General 08/16/16 05/04/23 documented as of this encounter
--- OUTSIDE RECORDS SUMMARY | 2024-07-29 17:19 | XMS_ITS | Encounter Summary ---
Author Organization [facility] Address [address] [place] [address] Phone Care Team Providers Care Inside Sales Coordinator Name Role Phone Bhavna Rios CARLA Primary Care Provider [phone] Reason for Visit * Reason Onset Date Comments Med Refill 07/19/2022 adult provider 07/19/2022 Encounter Details Date Type Department Care Team (Late st Contact Info) Description 07/19/2022 Refill [facility] - [place] [address] [place] [address] Lola Moseley LPN Medication refill Social History Tobacco Use Types Packs/Day Years Used Date Smoking Tobacco: Never Smokeless Tobacco: Never Alcohol Use Standard Drinks/Week Comments Yes 0 (1 standard drink = 0.6 oz pure alcohol) socially, denies binge drinking Hunger/Food Answer Date Recorded In the last 12 months, did y ou or your family ever eat less than you felt you should because there wasn't enough money for food? No 05/28/2020 Stable Housing Answer Date Recorded Are you worried that in the next 2 months you may not have stable housing? No 05/28/2020 Transportation Concerns Answer Date Rec orded In the last 12 months, have you or your family ever had to go without healthcare because you didn't have a way to get there? No 05/28/2020 Hazards in Home Answer Date Recorded Think about the place you li ve. Do you have problems with any of the following? Pests (mice or roaches), mold, no/not working smoke detectors, water leaks, no window guards. No 2019 Financing Utilities Answer Date Recorde d In the last 12 months, has t he electric, gas, oil, or water company threatened to shut off your services in your home? No 05/28/2020 Safety at Home Answer Date Recorded Are you or your family worried about feeling saf e in your home? No 05/28/2020 Outside Support Answer Date Recorded Do you feel that you need mo re support from other people or programs to help you care for yourself or your family? No 05/28/2020 Understanding Health Concerns Answer Da te Recorded Do you need help understandi ng your or your child's healthcare needs (diagnosis, medications, plan, etc.)? No 05/28/2020 Financing Health Concerns Answer Date R ecorded In the last 12 months, was t here a time when your child needed to see a doctor or get medications or supplies but could not because of cost? No 05/28/2020 Missing School or Work Answer Date Shivam rded Did you or your child miss s chool or work because of a health problem that could have been avoided? No 05/28/2020 Comments Unknown Sex and Gender Information Value Date Recorded Sex Assigned at Not on file Legal Sex Female 3:52 PM EST Gender Identity Female 05/28/2020 10:28 AM EST Sexual Orientation Straight 03/05/2019 9: 10 AM EDT documented as of this encounter Miscellaneous Notes * Telephone Encounter - Lawanda Lewis - 07/20/2022 1:23 PM EST Called pt and let her know * Telephone Encounter - Bhavna Rios NP - 07/20/2022 6:28 AM EST Transition of care letter mailed in March, I will send 1 yr RF of control but she must establish care with adult provider, I will noit do future refills, please call her and let her know, thank you * Telephone Encounter - Lola Moseley LPN - 07/19/2022 4:09 PM EST Refill request for control Last fill was 04/2022 Last wcv was [address] [facility] E'tn documented in this encounter Plan of Treatment Not on file documented as of this encounter Visit Diagnoses Diagnosis Medication refill Issue of repeat prescriptions documented in this encounter Care Teams Inside Sales Coordinator Relationship Specialty Start Date End Date Bhavna Rios NP [address] [place] [address] PCP - General 08/16/16 05/04/23 documented as of this encounter
--- OUTSIDE RECORDS SUMMARY | 2024-07-29 17:20 | XMS_ITS | Clinical Summary ---
Author Organization [facility] Address [address] [place] [address] Phone Care Team Providers Care Jewelry Sales Associate Name Role Phone Unavailable Primary Care Provider Unavailabl e Allergies Active Allergy Reactions Criticality Noted Date Comments Environmental Itching,Other (see comments) Medium 05/04/2017 Seasonal; runny nose, itchy eyes, scratch throat. Medications Loratadine 10 MG capsule Take 10 mg by mouth as needed. Active traZODone 100 MG tablet Take 50 mg by mouth. Active Vit-Fe Fumarate-FA ( 19) chewable tablet Chew. Acti ve levonorgestrel-e thinyl estradiol (Sronyx) 0.1-20 MG-MCG per tabletIndication s:Medication refill Take 1 tablet by mouth daily. 84 tablet 3 07/20/2022 Active Active Problems Problem Noted Date Diagnosed Date Less than 8 weeks gestation of 021 Breakthrough bleeding 05/28/2020 Dysmenorrhea 04/28/2016 Depression 04/14/2015 Overview (07/13/2017): with suicidal ideation; improved post-hospitalization at [place].07/13/17- symptoms resurfaced, going to crisis at [facility] today, unclear if stopped therapy/meds by Dr Gates Anxiety disorder 03/12/2015 Overview (03/05/2019): meds Rx's by Dr Gates-sees therapist at [facility]-07/13/17-symptoms resurfaced, going to crisis at [facility] today, unclear if stopped therapy/meds by Dr Gates, 03/05/19- persists, milder than in past, recommend restart therapy Resolved Problems Problem Noted Date Diagnosed Date Resolved Date Amenorrhea 11/12/2019 05/28/2020 Overview (11/12/2019): 11/12/19-secondary Immunizations Name Administration Dates Next Due DTaP 03/08/2004, 2,2000,07/17,2000 HPV, Quadrivalent 08/14/2012,03/28/2012,01/25/20 12 Hep A, Adult 03/05/2019 Hep B, ped/adol 2000,2000,2000 Hib (PRP-T) 06/04/2001, 1,2000,05/10 IPV 03/08/2004, 1,2000,05/10 Influenza 03/04/2009,03/06/2008 Influenza, injectable, MDCK, preservative free, quadrivalent 04/17/2018 Influenza, injectable, quadr ivalent, preservative free 04/21/2023,04/12/2022,04/20/2021,06/04,04/10/2019,05/04/2017,03/29/2016 Influenza, intranasal, quadrivalent 04/15/2015,1 ,03/27/2013 Influenza, intranasal, trivalent 06/14/2012,11/0 01/2011,04/20/2010 MMR 03/10/2005,06/04/2001 Meningococcal Conj (Menactra) MCV4P 05/09/2018,0 01/25/2012 Pneumococcal Conjugate 06/04/2001,2000,2000,05/10 Td (adult) (MBL), 2 Lf tetan us toxoid, PF, adsorbed 03/07/2009 Tdap 05/05/2021,01/25/2012 Varicella 02/21/2007,03/02/2001 Social History Tobacco Use Types Packs/Day Years [...] Orientation Straight 03/05/2019 9: 10 AM EDT Last Filed Vital Signs Vital Sign Reading Time Taken Comments Blood Pressure 107/62 11/12/2019 1:21 PM EDT Pulse 101 03/29/2020 11:04 AM EDT Temperature 36.8 ??C (98.3 ??F) 01/01/2022 2:38 PM ED T Respiratory Rate - - Oxygen Saturation 97% 03/29/2020 11:04 AM EDT Inhaled Oxygen Concentration - - Weight 73.2 kg (161 lb 6.4 oz) 03/29/2020 11:04 AM EDT Height 171.5 cm (5' 7.5 ) 11/12/2019 1:21 PM EDT Body Mass Index 24.91 11/12/2019 1:21 PM EDT Plan of Treatment Health Maintenance Due Date Last Done Comments Influenza Vaccines (#1) 2024 04/21/20, 04/12/2022, 04/20/2021, Additional history exists COVID-19 Vaccine ( season) 2024 11/05/2020, 10/12/2020 DTaP,Tdap,and Td Vaccines (8 - Td or Tdap) 05/05/2031 05/05/2021, 01/25/2012, 03/07/2009, Additional history exists Hepatitis B Vaccines Completed 2000, 2000, 2000 HIB Vaccines Completed 06/04/2001, 08/25, 2000, Additional history exists Pneumococcal Vaccine Completed 06/04/2001, 2000, 2000, Additional history exists IPV Vaccines Completed 03/08/2004, 12/2000, 2000, Additional history exists MMR Vaccines Completed 03/10/2005, 06/04/2001 Varicella Vaccines Completed 02/21/2007, 03/02/2001 HPV Vaccines Completed 08/14/2012, 08/2011, 01/25/2012 Meningococcal Vaccine Completed 05/09/2018, 012 Hepatitis A Vaccines Aged Out 03/05/2019 No long er eligible based on patient's age to complete this topic Men B Vaccine Aged Out No longer elig ible based on patient's age to complete this topic Procedures * Due to [place] state law, this organization might not be sharing sensitive test results. Procedure Name Priority Date/Time Associated Diagnosis Comments CHLAMYDIA TRACHOMATIS, AMPLIFIED Routine 03/05/2019 9:41 AM EDT Screening for chlamydial disease from Last 3 Months or Most Recently Relevant to Health Maintenance Results * Due to [place] state law, this organization might not be sharing sensitive test results. * Chlamydia trachomatis, Amplified (03/05/2019 9:41 AM EDT) Chlamydia trachomatis RNA, TMA Not Detected Not Detected 03/06/2019 1:43 PM EDT [facility] Urine 03/05/2019 9:41 AM EDT 03/05/2019 9:59 AM EDT us Bhavna Rios NP LAB BLOOD ORDERABLES Final Res ult [facility] from Last 3 Months or Most Recently Relevant to Health Maintenance
== END 2024-07-29 16:49 | disposition home or self-care (01) ==
LOC: HO.HMCH 16:16
DX: F41.1 Generalized anxiety disorder (principal); F41.0 Panic disorder [episodic paroxysmal anxiety]; F33.1 Major depressive disorder, recurrent, moderate; G47.00 Insomnia, unspecified

== ENCOUNTER → 2024-10-30 15:59 | Outpatient (BNVA) | payer OTHER, SELFPAY | DX: Z23 Encounter for immunization (principal) | CPT/HCPCS: 90471; 90746 ==

== ENCOUNTER → 2024-10-30 15:59 | Outpatient (AMB) | payer OTHER, SELFPAY ==
--- NOTE | 2024-10-30 16:16 | AM.OFFVISNUR ---
Intake Visit Reasons: Hep B vaccine Allergies No Known Allergies Allergy (Verified 07/29/24 16:19) Immunizations Recombivax HB (PF) 10 mcg/mL intramuscular suspension Performing Provider: Christine Sebastian PA-C Performing Location[place] [facility] [place] [facility] Administered by: Ebony Reis LPN on 10/30/24 16:16 Dose Route Admin Location Dispensed Lot Number Expiration Date [facility] Bowling Ball Marker 1 mL IM Left Deltoid 1 mL [id number] 08/08/26 23743-082-86 [employer] VIS Given Date VIS Provided VIS Publication Date 10/30/24 Single Vaccine 22 Eligibility Eligibility Date Funding Source Not [facility] Eligible 10/30/24 Private Assessment & Plan Assessment & Plan Orders: Orders Hepatitis B Adult Immunization Today Z23 - Encounter for immunization Medications: New Recombivax HB (PF) (hepatitis B virus vacc.rec(PF)) 1.0 mL IM ONCE 1 mL 0RF NS Z23 - Encounter for immunization Coding
--- OUTSIDE RECORDS SUMMARY | 2024-10-30 16:29 | XMS_ITS | Encounter Summary ---
Author Organization [facility] Address [address] [place] [address] Phone Care Team Providers Care Landing Worker Name Role Phone Bhavna Rios NP Primary Care Provider [phone] Encounter Details Date Type Department Care Team (Late st Contact Info) Description 02/01/2017 Conversion Encounter [facility] Pediatrics - [address], [address] [place] [address] Bhavna Rios NP [address] [place] [address] Social History Tobacco Use Types Packs/Day Years [...] on filedocumented in this encounter Care Teams Landing Worker Relationship Specialty Start Date End Date Bhavna Rios NP [address] [place] [address] PCP - General 08/16/16 05/04/23 documented as of this encounter
--- OUTSIDE RECORDS SUMMARY | 2024-10-30 16:29 | XMS_ITS | Encounter Summary ---
Author Organization [facility] Address [address] [place] [address] Phone Care Team Providers Care Cmo & President Name Role Phone Bhavna Rios DESKTOP PUBLISHER Primary Care Provider [phone] Reason for Visit * Reason Comments Med Refill Encounter Details Date Type Department Care Team (Late st Contact Info) Description 06/06/2019 Refill [facility] - [place] [address] [place] [address] Bhavna Rios NP [address] [place] [address] Encounter for initial prescription of contraceptive pills [...] pills documented in this encounter Care Teams Cmo & President Relationship Specialty Start Date End Date Bhavna Rios NP [address] [place] [address] PCP - General 08/16/16 05/04/23 documented as of this encounter
--- OUTSIDE RECORDS SUMMARY | 2024-10-30 16:29 | XMS_ITS | Clinical Summary ---
Author Organization [facility] Address [address] [place] [address] Phone Care Team Providers Care Senior Software Quality Engineer Name Role Phone Unavailable Primary Care Provider [...] (07/13/2017): with suicidal ideation; improved post-hospitalization at [place].07/13/17- symptoms resurfaced, going to crisis at [facility] today, unclear if stopped therapy/meds by Dr Gates Anxiety disorder 03/12/2015 Overview (03/05/2019): meds Rx's by Dr Gates-sees therapist at [facility]-07/13/17-symptoms resurfaced, going to crisis at [facility] today, unclear if stopped therapy/meds by Dr Gates, 03/05/19- persists, milder than in past, recommend restart therapy Resolved Problems Problem Noted Date Diagnosed Date Resolved Date Amenorrhea 11/12/2019 05/28/2020 Overview (11/12/2019): 11/12/19-secondary Immunizations Immunization Administration Dates Next Due DTaP 03/08/2004, 2,2000,07/17,2000 [...] complete this topic Procedures * Due to [place] state law, this organization might not be sharing sensitive test results. Procedure Name Priority Date/Time Associated Diagnosis Comments CHLAMYDIA TRACHOMATIS, AMPLIFIED Routine 03/05/2019 9:41 AM EDT Screening for chlamydial disease from Last 3 Months or Most Recently Relevant to Health Maintenance Results * Due to [place] state law, this organization might not be sharing sensitive test results. * Chlamydia trachomatis, Amplified (03/05/2019 9:41 AM EDT) Chlamydia trachomatis RNA, TMA Not Detected Not Detected 03/06/2019 1:43 PM EDT [facility] Urine 03/05/2019 9:41 AM EDT 03/05/2019 9:59 AM EDT us Bhavna Rios NP LAB BLOOD ORDERABLES Final Res ult [facility] from Last 3 Months or Most Recently Relevant to Health Maintenance
--- OUTSIDE RECORDS SUMMARY | 2024-10-30 16:29 | XMS_ITS | Encounter Summary ---
Author Organization [facility] Address [address] [place] [address] Phone Care Team Providers Care Cashier Office Name Role Phone Bhavna Rios CARLA Primary Care Provider [phone] Reason for Visit * Reason Onset Date Comments Med Refill 07/19/2022 adult provider 07/19/2022 Encounter Details Date Type Department Care Team (Late st Contact Info) Description 07/19/2022 Refill [facility] - [place] [address] [place] [address] Lola Moseley LPN Medication refill Social History [...] Miscellaneous Notes * Telephone Encounter - Lawanda Leiws - 07/20/2022 1:23 PM EST Called pt [...] Last wcv was 2019 Please send to [facility] E'tn documented in this encounter Plan of Treatment Not on file documented as of this encounter Visit Diagnoses Diagnosis Medication refill Issue of repeat prescriptions documented in this encounter Care Teams Cashier Office Relationship Specialty Start Date End Date Bhavna Rios NP [address] [place] [address] PCP - General 08/16/16 05/04/23 documented as of this encounter
--- OUTSIDE RECORDS SUMMARY | 2024-10-30 16:29 | XMS_ITS | Encounter Summary ---
Author Organization [facility] Address [address] [place] [address] Phone Care Team Providers Care Clinical Research Tech Name Role Phone Bhavna Rios NP Primary Care Provider [phone] Reason for Visit * Reason Comments Med Refill Encounter Details Date Type Department Care Team (Late st Contact Info) Description 09/10/2017 Refill [facility] - [place] [address] [place] [address] Bhavna Rios NP [address] [place] [address] Encounter for initial prescription of contraceptive pills [...] pills documented in this encounter Care Teams Clinical Research Tech Relationship Specialty Start Date End Date Bhavna Rios NP [address] [place] [address] PCP - General 2/21/17 11/9/23 documented as of this encounter
== END ==
LOC: HO.HMCH 16:00
DX: Z23 Encounter for immunization (principal)

== ENCOUNTER 2024-12-06 15:57 | Outpatient (AMB) | payer OTHER, SELFPAY ==
--- NOTE | 2024-12-06 16:25 | AM.OFFVISNUR ---
Intake Visit Reasons: Hep B 2nd dose Allergies No Known Allergies Allergy (Verified 07/29/24 16:19) Immunizations Recombivax HB (PF) 10 mcg/mL intramuscular suspension Performing Provider: Christine Sebastian PA-C [facility] [place]ered by: Ebony Reis LPN on 12/06/24 16:26 Dose Route Admin Location Dispensed Lot Number Expiration Date [facility] Behavioral Therapist 1 mL IM Left Deltoid 1 mL [id number] 08/08/26 14354-896-42 [employer] VIS Given Date VIS Provided VIS Publication Date 12/06/24 Single Vaccine 22 Eligibility Eligibility Date Funding Source Not [facility] Eligible 12/06/24 Private Assessment & Plan Assessment & Plan Orders: Orders Hepatitis B Adult Immunization Today Z23 - Encounter for immunization Medications: New Recombivax HB (PF) (hepatitis B virus vacc.rec(PF)) 1.0 mL IM ONCE 1 mL 0RF NS Z23 - Encounter for immunization Coding
== END 2024-12-06 16:25 | disposition home or self-care (01) ==
LOC: HO.HMCH 15:58
DX: Z23 Encounter for immunization (principal)

== ENCOUNTER → 2024-12-06 15:57 | Outpatient (BNVA) | payer OTHER, SELFPAY | DX: Z23 Encounter for immunization (principal) | CPT/HCPCS: 90471; 90746 ==

== ENCOUNTER 2025-06-09 16:27 | Outpatient (AMB) | payer OTHER, SELFPAY ==
--- NOTE | 2025-06-09 16:39 | AM.OFFVISNUR ---
Intake Visit Reasons: HEP B Dose Allergies No Known Allergies Allergy (Verified 07/29/24 16:19) Office Procedures Flu Questionnaire Does the patient have a severe egg allergy?: No Does the patient have severe life threatening allergies?: No Does the patient have a fever or illness today?: No Has the patient ever had Guillain-[place] Syndrome?: No Has the patient ever had any past reaction to a flu shot?: No Immunizations Recombivax HB (PF) 10 mcg/mL intramuscular suspension Performing Provider: Christine Sebastian PA-C Performing Location: [facility] [place] [facility] Administered by: Ebony Reis LPN on 06/09/25 16:39 Dose Route Admin Location Dispensed Lot Number Expiration Date [facility] Contact Worker 1 mL IM Left Deltoid 1 mL [id number] 02/28/27 [id number] [employer] Total Dispensed Waste 1 mL 0 % VIS Given Date VIS Provided VIS Publication Date 06/09/25 Single Vaccine 22 Eligibility Eligibility Date Funding Source Not [facility] Eligible 06/09/25 Private Fluarix [id number] (PF) 45 mcg (15 mcg x 3)/0.5 mL IM syringe Performing Provider: Christine Sebastian PA-C Performing Location[facility] [place] [facility] Administered by: Ebony Reis LPN on 06/09/25 16:39 Dose Route Admin Location Dispensed Lot Number Expiration Date [facility] Contact Worker 0.5 mL IM Left Deltoid 0.5 mL [id number] 12/23/25 31186-779-94 [employer] VIS Given Date VIS Provided VIS Publication Date 06/09/25 Single Vaccine 24 Eligibility Eligibility Date Funding Source Not [facility] Eligible 06/09/25 Private Assessment & Plan Assessment & Plan Orders: Orders Hepatitis B Adult Immunization Today Z23 - Encounter for immunization Influenza [id number] Immunization Today Z23 - Encounter for immunization Coding
--- OUTSIDE RECORDS SUMMARY | 2025-06-09 22:39 | XMS_ITS | Encounter Summary ---
Author Organization [facility] Address [address] [place] [address] Phone Care Team Providers Care Utility Mechanic Supervisor Name Role Phone Bhavna Rios NP Primary Care Provider [phone] Reason for Visit * Reason Comments Med Refill Encounter Details Date Type Department Care Team (Late st Contact Info) Description 09/10/2017 Refill [facility] - [place] [address] [place] [address] Bhavna Rios NP [address] [place] [address] Encounter for initial prescription of contraceptive pills [...] pills documented in this encounter Care Teams Utility Mechanic Supervisor Relationship Specialty Start Date End Date Bhavna Rios NP [address] [place] [address] PCP - General 2/21/17 11/9/23 documented as of this encounter
--- OUTSIDE RECORDS SUMMARY | 2025-06-09 22:39 | XMS_ITS | Clinical Summary ---
Author Organization [facility] Address [address] [place] [address] Phone Care Team Providers Care Sales Office Administrator Name Role Phone Unavailable Primary Care Provider [...] (07/13/2017): with suicidal ideation; improved post-hospitalization at [place].07/13/17- symptoms resurfaced, going to crisis at [facility] today, unclear if stopped therapy/meds by Dr Gates Anxiety disorder 03/12/2015 Overview (03/05/2019): meds Rx's by Dr Gates-sees therapist at [facility]-07/13/17-symptoms resurfaced, going to crisis at [facility] today, unclear if stopped therapy/meds by Dr [...] 101 03/29/2020 11:04 AM EDT Temperature 36.8 C (98.3 F) 01/01/2022 2:38 PM EDT Respiratory Rate - - Oxygen Saturation 97% 03/29/2020 11:04 AM EDT Inhaled Oxygen Concentration - - Weight 73.2 kg (161 lb 6.4 oz) 03/29/2020 11:04 AM EDT Height 171.5 cm (5' 7.5 ) 11/12/2019 1:21 PM EDT Body Mass Index 24.91 11/12/2019 1:21 PM EDT Plan of Treatment Health Maintenance Due Date Last Done Comments Influenza Vaccines (#1) 2025 04/21/20, 04/12/2022, 04/20/2021, Additional history exists COVID-19 Vaccine ( season) 2025 11/05/2020, 10/12/2020 DTaP,Tdap,and Td Vaccines (8 - [...] complete this topic Procedures * Due to [place] state law, this organization might not be sharing sensitive test results. Procedure Name Priority Date/Time Associated Diagnosis Comments CHLAMYDIA TRACHOMATIS, AMPLIFIED Routine 03/05/2019 9:41 AM EDT Screening for chlamydial disease from Last 3 Months or Most Recently Relevant to Health Maintenance Results * Due to [place] state law, this organization might not be sharing sensitive test results. * Chlamydia trachomatis, Amplified (03/05/2019 9:41 AM EDT) Chlamydia trachomatis RNA, TMA Not Detected Not Detected 03/06/2019 1:43 PM EDT [facility] Urine 03/05/2019 9:41 AM EDT 03/05/2019 9:59 AM EDT us Bhavna Rios NP LAB MICROBIOLOGY - GENERAL ORD ERABLES Final Result [facility] from Last 3 Months or Most Recently Relevant to Health Maintenance
--- OUTSIDE RECORDS SUMMARY | 2025-06-09 22:39 | XMS_ITS | Encounter Summary ---
Author Organization [facility] Address [address] [place] [address] Phone Care Team Providers Care Spiral Runner Name Role Phone Akanksha Romo MD Primary Care Provider [phone] Julissa Eid MD Primary Care Provider [phone] Bhavna Rios NP Primary Care Provide r Encounter Details Date Type Department Care Team (Late st Contact Info) Description 07/25/2017 Procedure Pass [facility], [address] [address] Social History Tobacco Use Types Packs/Day Years Used Date Smoking Tobacco: Never Assessed Comments Unknown Sex and Gender Information Value Date Recorded Sex Assigned at Female 09/07/2017 4:34 PM EDT Legal Sex Female 8:46 PM EDT Gender Identity Female 09/07/2017 4:34 PM EDT Sexual Orientation Straight 01/02/2021 5: 16 PM EDT documented as of this encounter Last Filed Vital Signs Vital Sign Reading Time Taken Comments Blood Pressure - - Pulse - - Temperature - - Respiratory Rate - - Oxygen Saturation - - Inhaled Oxygen Concentration - - Weight 65.8 kg (145 lb) 07/25/2017 5:54 PM EST Height 170.2 cm (5' 7 ) 07/25/2017 5:54 PM EST Body Mass Index 22.71 07/25/2017 5:54 PM EST Body Mass Index Percentile 68.21% 07/25/2017 5:5 4 PM EST Growth Chart: CDC (Girls, 2- 20 Years) documented in this encounter Plan of Treatment Not on file documented as of this encounter Visit Diagnoses Not on filedocumented in this encounter Additional Health Concerns Infection Onset Date Last Indicated Resolved Time CoV-Exposed Comment:Recent close contact 01/31/2020 01/31/2020 02/14/2020 1:23 AM EDT documented as of this encounter Care Teams Spiral Runner Relationship Specialty Start Date End Date Akanksha Romo MD [address] [place] [address], [address] [place] [address] [email or web address] PCP - General 06/29/17 09/03/17 Julissa Eid MD [address] [place] [address] [id number] [place] [address] PCP - General Pediatrics 09/04/17 03/26/20 Bhavna Rios NP [address] [place] [address] [email or web address] PCP - General Family Medicine 12/17/20 documented as of this encounter Additional Source Comments The information contained in this document represents components of the legal health record. It is not the complete legal health record.[facility]
--- OUTSIDE RECORDS SUMMARY | 2025-06-09 22:39 | XMS_ITS | Encounter Summary ---
Author Organization [facility] Address [address] [place] [address] [place] [address] Phone Care Team Providers Care Physical Therapy Asst Name Role Phone Julissa Eid MD Primary Care Provider [phone] Bhavna Rios RADIO ADJUSTER Primary Care Provide r Encounter Details Date Type Department Care Team (Latest Contact Info) Description 12/25/2019 Transcribe Orders [facility] Phleb [facility]AP [address] [place] [address] Edward Toro MD [address] [place] [phone] [email or web address] Acute pharyngitis, unspecified etiology (Primary Dx) Social History Tobacco Use Types Packs/Day Years Used Date Smoking Tobacco: Never Assessed Comments Unknown Sex and Gender Information Value Date Recorded Sex Assigned at Female 09/07/2017 4:34 PM EDT Legal Sex Female 8:46 PM EDT Gender Identity Female 09/07/2017 4:34 PM EDT Sexual Orientation Straight 01/02/2021 5: 16 PM EDT documented as of this encounter Plan of Treatment Not on file documented as of this encounter Visit Diagnoses Diagnosis Acute pharyngitis, unspecified etiology- Primary documented in this encounter Additional Health Concerns Infection Onset Date Last Indicated Resolved Time CoV-Exposed Comment:Recent close contact 01/31/2020 01/31/2020 02/14/2020 1:23 AM EDT documented as of this encounter Care Teams Physical Therapy Asst Relationship Specialty Start Date End Date Julissa Eid MD [address] [facility] [address] [place] [address] PCP - General Pediatrics 09/04/17 03/26/20 Bhavna Rios NP [address] [place] [address] [email or web address] PCP - General Family Medicine 12/17/20 documented as of this encounter Additional Source Comments The information contained in this document represents components of the legal health record. It is not the complete legal health record.[facility]
--- OUTSIDE RECORDS SUMMARY | 2025-06-09 22:39 | XMS_ITS | Encounter Summary ---
Author Organization [facility] Address [address] [place] [address] Phone Care Team Providers Care Watch Parts Grinder Name Role Phone Julissa Eid MD Primary Care Provider Bhavna Rios NP Primary Care Provide r Encounter Details Date Type Department Care Team (Latest Contact Info) Description 01/31/2020 Transcribe Orders Virtual Department [address] [place] [address] Bhavna Rios, MARINE ENGINE MACHINIST APPRENTICE [address] [place] [address] [email or web address] Encounter for screening laboratory testing for COVID-19 virus (Primary Dx) Social History Tobacco Use Types [...] this encounter Visit Diagnoses Diagnosis Encounter for screening laboratory testing for COVID-19 virus- Primary documented in this encounter Additional Health Concerns Infection Onset Date Last Indicated Resolved Time CoV-Exposed Comment:Recent close contact 01/31/2020 01/31/2020 02/14/2020 1:23 AM EDT documented as of this encounter Care Teams Watch Parts Grinder Relationship Specialty Start Date End Date Julissa Eid MD [address] [facility] [address] [place] [address] PCP - General Pediatrics 09/04/17 03/26/20 Bhavna Rios NP [address] [place] [address] [email or web address] PCP - General Family Medicine 12/17/20 documented as of this encounter Additional Source Comments The information contained in this document represents components of the legal health record. It is not the complete legal health record.[facility]
--- OUTSIDE RECORDS SUMMARY | 2025-06-09 22:39 | XMS_ITS | Clinical Summary ---
Author Organization [facility] Address [address] [place] [address] Phone Care Team Providers Care Telecommunicator Supervisor Name Role Phone Bhavna Rios WILDFIRE PREVENTION SPECIALIST Primary Care Provide r Allergies No known active allergies Medications prenat.vits,mathieu ,vwm-bqne-xpudv ( VITAMIN) tablet Take by mouth. Active nystatin (NYSTOP) powder Apply topically 2 (two) times a day. 30 g 1 Active Active Problems Problem Noted Date Diagnosed Date Maternal varicella, non-immune 02/19/2021 Resolved Problems Problem Noted Date Diagnosed Date Resolved Date Encounter for supervision of normal first in second trimester 02/19/2021 03/11/2021 Overview (02/19/2021): OB-CMI score: 0 [12/31/2020] Transfer from [facility] at 17 weeks ( labs reviewed, normal except varicella Ab neg) Group PN care? * Rh + GC/Chlam neg PAP normal 2020 first trimester Tdap * Flu * Hgb * GTT (early GTT 90, due to family hx diabetes) 28 wk Repeat RPR * GBS * PPBC * screening normal NT screening Immunizations Immunization Administration Dates Next Due COVID-19 (Pre-04/17) Pfizer Vaccine, mRNA, PF 11/05/2020,10/12/2020 DTaP 03/08/2004, 2,2000,07/17,2000 HPV,quadrivalent 08/14/2012,03/28/2012, 2 Hepatitis A, Adult 03/05/2019 Hepatitis B 2000,2000,2000 Hib,PRP-T 06/04/2001, 1,2000,05/10 IPV 03/08/2004, 1,2000,05/10 Influenza Quadrivalent Intranasal 04/15/2015,04/2014,03/27/2013 Influenza Quadrivalent MDCK Preservative Free IM 04/17/2018 Influenza Quadrivalent Prese rvative Free IM 06/04/2020,04/10/2019,05/04/2017,03/29 Influenza quadrivalent nasal 06/14/2012,05/03/20 11,04/20/2010 Influenza, Unspecified Formulation 03/04/2009, MMR 03/10/2005,06/04/2001 Meningococcal MCV4P 05/09/2018,01/25/2012 Pneumococcal conjugate, PCV 7 06/04/2001 ,2000,2000,05/10 Td (adult),2 Lf Tetanus Toxo id, PF, Adsorbed 03/07/2009 Tdap 01/25/2012 Varicella 02/21/2007,03/02/2001 Family History Medical History Relation Comments No Known Problems Father Lung cancer Maternal Grandfather No Known Problems Maternal Grandmother Breast cancer Mother Cancer Paternal Grandfather Heart disease Paternal Grandmother Obesity Paternal Grandmother No Known Problems Sister Relation Status Comments Father Alive Maternal Grandfather Maternal Grandmother Alive Mother Alive Paternal Grandfather Paternal Grandmother Sister Alive Social History Tobacco Use Types Packs/Day Years Used Date Smoking Tobacco: Never Smokeless Tobacco: Never Alcohol Use Standard Drinks/Week Comments Not Currently 0 (1 standard drink = 0.6 oz pur e alcohol) Education Answer Date Recorded Are you interested in more education? Not on maxwell e 10/21/2022 Are you concerned about learning? Not on file 10/21/2022 No 10/21/2022 No 10/21/2022 Digital Access Answer Date Recorded No 11/21/2022 No 11/21/2022 No 11/21/2022 Reliable internet access at home? Not on file 11/21/2022 Device with a working camera? Not on file Intimate Partner Violence Answer Date R ecorded Are you denied basic needs s uch as food, clothing, or medical care? No 02/19/2023 In the past 12 months have y ou been in a relationship with a person who hurts, threatens, or tries to control you? No 02/19/2023 Are you denied basic needs s uch as food, clothing, or medical care? No 02/19/2023 In the past 12 months have y ou been in a relationship with a person who hurts, threatens, or tries to control you? No 02/19/2023 Comments No Sex and Gender Information Value Date Recorded Sex Assigned at Female 09/07/2017 4:34 PM EDT Legal Sex Female 8:46 PM EDT Gender Identity Female 09/07/2017 4:34 PM EDT Sexual Orientation Straight 01/02/2021 5: 16 PM EDT Last Filed Vital Signs Vital Sign Reading Time Taken Comments Blood Pressure 108/72 02/19/2023 2:39 PM EDT Pulse 72 02/19/2023 2:39 PM EDT Temperature 36.8 C (98.2 F) 02/19/2023 1:08 PM EDT Respiratory Rate 18 02/19/2023 2:39 PM EDT Oxygen Saturation 99% 02/19/2023 2:39 PM EDT Inhaled Oxygen Concentration - - Weight 79.4 kg (175 lb) 02/19/2023 1:08 PM EDT Height 172.7 cm (5' 8 ) 02/19/2023 1:08 PM EDT Body Mass Index 26.61 02/19/2023 1:08 PM EDT Plan of Treatment Health Maintenance Due Date Last Done Comments DEPRESSION SCREENING 2012 SMOKING Hx and SMOKELESS TOBACCO SCREENING 02/28/2013 HEPATITIS C SCREENING 02/28/2018 HIV ONE-TIME SCREENING (18-65 YEARS) 02/28/2018 PAP SMEAR 01/20/2024 01/19/2021 INFLUENZA VACCINE (#1) 2025 2, 04/20/2021, 06/04/2020, Additional history exists COVID-19 VACCINE ( season) 2025 11/05/2020, 10/12/2020 Adult Td,Tdap Booster 05/05/2031 05/05/2021 , 01/25/2012, 03/07/2009 HIB VACCINES Completed 06/04/2001, 08/25, 2000, Additional history exists PNEUMOCOCCAL VACCINES (0-49 years) Aged Out 06/04/2001, 2000, 2000, Additional history exists No longer eligible based on patient's age to complete this topic HPV VACCINES Completed 08/14/2012, 08/2011, 01/25/2012 MENINGOCOCCAL VACCINES (ACWY) Completed 05/09/2018, 01/25/2012 HEPATITIS A VACCINES Aged Out 03/05/2019 No long er eligible based on patient's age to complete this topic MENINGOCOCCAL VACCINES (B) Aged Out N o longer eligible based on patient's age to complete this topic Medical Devices Not on file Procedures Procedure Name Priority Date/Time Associated Diagnosis Comments PAP SMEAR FOR RESULT ENTRY ONLY Routine 01/19/2021 from Last 3 Months or Most Recently Relevant to Health Maintenance Results * PAP SMEAR FOR RESULT ENTRY ONLY (01/19/2021) Pap smear NIL (done at [facility]; records in media) us Historical Provider HEALTH MAINTENANCE Edited Result - Final from Last 3 Months or Most Recently Relevant to Health Maintenance Insurance [employer] BENEFITS ADMINISTRATORS [facility] GENERIC [place] [place] [address] BENEFITS ADMINISTRATORS [facility] GENERIC [place] [address] [place] [address] [facility] GENERIC COMMERCIAL [employer] BENEFITS ADMINISTRATORS [facility] GENER[facility] COMMERCIAL [employer] BENEFITS ADMINISTRATORS [facility] GENERIC COMMERCIAL [facility] BLUE BENEFITS ADMINISTRATORS [facility] [address] COMMERCIAL [employer] ADMINISTRATORS [employer] ADMINISTRATORS [employer] BENEFITS ADMINISTRATORS Care Teams Telecommunicator Supervisor Relationship Specialty Start Date End Date Bhavna Rios NP [address] [place] [phone] [email or web address] PCP - General Family Medicine 12/17/20 Additional Source Comments The information contained in this document represents components of the legal health record. It is not the complete legal health record.[facility]
--- OUTSIDE RECORDS SUMMARY | 2025-06-09 22:39 | XMS_ITS | Encounter Summary ---
Author Organization [facility] Address [address] [place] [address] Phone Care Team Providers Care Italian Teacher Name Role Phone Bhavna Rios NP Primary Care Provider [phone] Encounter Details Date Type Department Care Team (Late st Contact Info) Description 02/01/2017 Conversion Encounter [facility] - [address], [address] [place] [address] Bhavna Rios NP [address] [place] [address] Social History Tobacco Use Types Packs/Day Years [...] on filedocumented in this encounter Care Teams Italian Teacher Relationship Specialty Start Date End Date Bhavna Rois NP [address] [place] [address] PCP - General 08/16/16 05/04/23 documented as of this encounter
--- OUTSIDE RECORDS SUMMARY | 2025-06-09 22:39 | XMS_ITS | Encounter Summary ---
Author Organization [facility] Address [address] [place] [address] Phone Care Team Providers Care Conical Mixer Name Role Phone Bhavna Rios CARDIAC CATH TECHNOLOGIST Primary Care Provider [phone] Reason for Visit * Reason Comments Med Refill Encounter Details Date Type Department Care Team (Late st Contact Info) Description 06/06/2019 Refill [facility] - [place] [address] [place] [address] Bhavna Rios NP [address] [place] [address] Encounter for initial prescription of contraceptive pills [...] pills documented in this encounter Care Teams Conical Mixer Relationship Specialty Start Date End Date Bhavna Rios NP [address] [place] [address] PCP - General 08/16/16 05/04/23 documented as of this encounter
--- OUTSIDE RECORDS SUMMARY | 2025-06-09 22:39 | XMS_ITS | Encounter Summary ---
Author Organization [facility] Address [address] [place] [address] Phone Care Team Providers Care Local Telephone Operator Name Role Phone Julissa Eid MD Primary Care Provider Bhavna Rios NP Primary Care Provide r Encounter Details Date Type Department Care Team (Latest Contact Info) Description 01/31/2020 Transcribe Orders Virtual Department [address] [place] [address] Bhavna Rios, CHIP SILO TENDER [address] [place] [address] [email or web address] Exposure to SARS-associated coronavirus (Primary Dx) Social History Tobacco Use Types [...] on file documented as of this encounter Results * COVID-19 PCR Order (02/04/2020 11:26 AM EDT) Specimen Source NASOPHARYNGEAL SWAB (CHIP SILO TENDER) [facility] COVID Testing Status Sent to [facility] Micro Lab [facility] Other 02/04/2020 11:2 6 AM EDT 02/04/2020 12:54 PM EDT us Bhavna Rios CHIP SILO TENDER LAB GENERAL ORDERABLE S Final Result [facility] [address] [place] [address] documented in this encounter Visit Diagnoses Diagnosis Exposure to SARS-associated coronavirus- Primary documented in this encounter Additional Health Concerns Infection Onset Date Last Indicated Resolved Time CoV-Exposed Comment:Recent close contact 01/31/2020 01/31/2020 02/14/2020 1:23 AM EDT documented as of this encounter Care Teams Local Telephone Operator Relationship Specialty Start Date End Date Julissa Eid MD [address] [id number] [place] [address] PCP - General Pediatrics 09/04/17 03/26/20 Bhavna Rios NP [address] [place] [address] [email or web address] PCP - General Family Medicine 12/17/20 documented as of this encounter Additional Source Comments The information contained in this document represents components of the legal health record. It is not the complete legal health record.[facility]
--- OUTSIDE RECORDS SUMMARY | 2025-06-09 22:39 | XMS_ITS | Encounter Summary ---
Author Organization [facility] Address [address] [place] [address] Phone Care Team Providers Care Electric Motor Controls Assembler Name Role Phone Akanksha Romo MD Primary Care Provider [phone] Julissa Eid MD Primary Care Provider [phone] Bhavna Rios NP Primary Care Provide r Encounter Details Date Type Department Care Team (Late st Contact Info) Description 08/29/2017 Procedure Pass [facility] [address] [place] [address] Social History Tobacco Use Types Packs/Day Years [...] documented as of this encounter Care Teams Electric Motor Controls Assembler Relationship Specialty Start Date End Date Akanksha Romo MD [address] [facility] 2 [place] [address] PCP - General 06/29/17 09/03/17 Julissa Eid MD [address] [facility] [address] [place] [address] PCP - General Pediatrics 09/04/17 03/26/20 Bhavna Rios NP [address] [place] [phone] [email or web address] PCP - General Family Medicine 12/17/20 documented as of this encounter Additional Source Comments The information contained in this document represents components of the legal health record. It is not the complete legal health record.[facility]
--- OUTSIDE RECORDS SUMMARY | 2025-06-09 22:39 | XMS_ITS | Encounter Summary ---
Author Organization [facility] Address [address] [place] [address] Phone Care Team Providers Care Store Sales Consultant Name Role Phone Akanksha Romo MD Primary Care Provider [phone] Julissa Eid MD Primary Care Provider [phone] Bhavna Rios NP Primary Care Provide r Encounter Details Date Type Department Care Team (Late st Contact Info) Description 08/29/2017 Ancillary Orders Virtual Department [address] [place] [address] Veena Haney MD [address] [place] [address] [place] [address] Pituitary adenoma Social History Tobacco Use Types Packs/Day Years [...] documented as of this encounter Results * MRI BRAIN (PITUITARY) WITH AND WITHOUT CONTRAST (09/07/2017 5:29 PM EDT) Anatomical Region Laterality Modality Head Magnetic Resonan ce 09/07/2017 5:47 PM EDT Impressions 09/07/2017 6:06 PM EDT Mild enlargement of the pituitary gland and pituitary stalk without convincing evidence of pituitary mass. Clinical follow-up recommended. POS [id number] Narrative 09/07/2017 6:06 PM EDT HISTORY: Numbness left side of tongue and face for approximately six months. Possible pituitary enlargement on previous MRI brain. COMPARISON: MRI brain 07/29/2017 TECHNIQUE: Exam performed on a 1.5 Ting high-field MRI scanner. Axial T2, T2 FLAIR, diffusion-weighted imaging with ADC map and sagittal T1 of the whole brain, thin section coronal T1 through the pituitary gland, followed by multi-phase coronal T1 series of the pituitary gland acquired before, during, and after the administration of gadolinium, post-gadolinium coronal and sagittal T1 through the pituitary gland, and post-gadolinium axial T1 of the whole brain sequences were obtained. FINDINGS: The pituitary is mildly enlarged measuring approximately 15 mm transversely x 10 mm craniocaudally x 9 mm anteroposteriorly. The superior border of the pituitary is rounded. The pituitary enhances fairly homogenously on the delayed contrast-enhanced sequences without definite signs of a pituitary mass. No abnormal signal within the cavernous sinuses. No other significant changes from 07/29/2017. Procedure Note Pawel Hamilton MD - 09/07/2017 HISTORY: Numbness left side of tongue and face for approximately sixmonths. Possible pituitary enlargement on previous MRI brain. COMPARISON: MRI brain 07/29/2017 TECHNIQUE: Exam performed on a 1.5 Ting high-field MRI scanner. AxialT2, T2 FLAIR, diffusion-weighted imaging with ADC map and sagittal T1 ofthe whole brain, thin section coronal T1 through the pituitary gland,followed by multi-phase coronal T1 series of the pituitary gland acquiredbefore, during, and after the administration of gadolinium,post-gadolinium coronal and sagittal T1 through the pituitary gland, andpost-gadolinium axial T1 of the whole brain sequences were obtained. FINDINGS: The pituitary is mildly enlarged measuring approximately 15 mmtransversely x 10 mm craniocaudally x 9 mm anteroposteriorly. Thesuperior border of the pituitary is rounded. The pituitary enhancesfairly homogenously on the delayed contrast- enhanced sequences withoutdefinite signs of a pituitary mass. No abnormal signal within thecavernous sinuses. No other significant changes from 07/29/2017. IMPRESSION: Mild enlargement of the pituitary gland and pituitary stalk withoutconvincing evidence of pituitary mass. Clinical follow-up recommended. POS [id number] Veena Haney MD IMG MR HEAD/NECK Final Re sult documented in this encounter Visit Diagnoses Diagnosis Pituitary adenoma Benign neoplasm of pituitary gland and craniopharyngeal duct (pouch) Pituitary adenoma Benign neoplasm of pituitary gland and craniopharyngeal duct (pouch) documented in this encounter Additional Health Concerns Infection Onset Date Last Indicated Resolved Time CoV-Exposed Comment:Recent close contact 01/31/2020 01/31/2020 02/14/2020 1:23 AM EDT documented as of this encounter Care Teams Store Sales Consultant Relationship Specialty Start Date End Date Akanksha Romo MD [address] [place] [address] 2 [place] [address] PCP - General 06/29/17 09/03/17 Julissa Eid MD [address] [address] PCP - General Pediatrics 09/04/17 03/26/20 Bhavna Rios NP [address] [place] [phone] [email or web address] PCP - General Family Medicine 12/17/20 documented as of this encounter Additional Source Comments The information contained in this document represents components of the legal health record. It is not the complete legal health record.[facility]
--- OUTSIDE RECORDS SUMMARY | 2025-06-09 22:39 | XMS_ITS | Encounter Summary ---
Author Organization [facility] Address [address] [place] [address] Phone Care Team Providers Care Recreation Leader Name Role Phone Bhavna Rios CARLA Primary Care Provider [phone] Reason for Visit * Reason Onset Date Comments Med Refill 07/19/2022 adult provider 07/19/2022 Encounter Details Date Type Department Care Team (Late st Contact Info) Description 07/19/2022 Refill [facility] - [place] [address] [place] [address] Lola Moseley LPN Medication refill Social History [...] wcv was [address] [facility] E'tn documented in this encounter Plan of Treatment Not on file documented as of this encounter Visit Diagnoses Diagnosis Medication refill Issue of repeat prescriptions documented in this encounter Care Teams Recreation Leader Relationship Specialty Start Date End Date Bhavna Rios NP [address] [place] [address] PCP - General 08/16/16 05/04/23 documented as of this encounter
--- OUTSIDE RECORDS SUMMARY | 2025-06-09 22:39 | XMS_ITS | Encounter Summary ---
Author Organization [facility] Address [address] [place] [address] Phone Care Team Providers Care Trend Investigator Name Role Phone kAanksha Romo MD Primary Care Provider + [phone] Julissa Eid MD Primary Care Provider [phone] Bhavna Rios NP Primary Care Provide r Encounter Details Date Type Department Care Team (Latest Contact Info) Description 05/04/2017 Transcribe Orders [facility] Main [address] [place], [place] [id number] Bhavna Rios, INSTALLMENT LOAN COLLECTOR [address] [place], [place] [id number] [email or web address] Screening for chlamydial disease (Primary Dx) Social History Tobacco Use Types Packs/Day Years Used Date Smoking Tobacco: Never Assessed Comments Unknown Sex and Gender Information Value Date Recorded Sex Assigned at Female 09/07/2017 4:34 PM EDT Legal Sex Female 8:46 PM EDT Gender Identity Female 09/07/2017 4:34 PM EDT Sexual Orientation Straight 01/02/2021 5: 16 PM EDT documented as of this encounter Plan of Treatment Pending Results Name Type Priority Associated Diagnoses Date /Time Chlamydia trachomatis, DNA probe Microbiology Routine Screening for chlamydial disease 05/04/2017 7:59 PM EST documented as of this encounter Visit Diagnoses Diagnosis Screening for chlamydial disease- Primary Special screening examination for unspecified chlamydial disease documented in this encounter Additional Health Concerns Infection Onset Date Last Indicated Resolved Time CoV-Exposed Comment:Recent close contact 01/31/2020 01/31/2020 02/14/2020 1:23 AM EDT documented as of this encounter Care Teams Trend Investigator Relationship Specialty Start Date End Date Akanksah Romo MD 193 [facility] 2 [place] [address] PCP - General 06/29/17 09/03/17 Julissa Eid MD 759 [facility] [address] [place] [address] PCP - General Pediatrics 09/04/17 03/26/20 Bhavna Rios NP [address] [place] [address] [email or web address] PCP - General Family Medicine 12/17/20 documented as of this encounter Additional Source Comments The information contained in this document represents components of the legal health record. It is not the complete legal health record.[facility]
--- OUTSIDE RECORDS SUMMARY | 2025-06-09 22:39 | XMS_ITS | Encounter Summary ---
Author Organization [facility] Address [address] [place] [id number] Phone Care Team Providers Care Trim Die Maker Name Role Phone Akanksha Romo MD Primary Care Provider + [phone] Julissa Eid MD Primary Care Provider + [phone] Bhavna Rios NP Primary Care Provide r Encounter Details Date Type Department Care Team (Late st Contact Info) Description 07/25/2017 Ancillary Orders Virtual Department [address] [place] [address] Veena Haney MD [address] [place] [address] [place] [address] Generalized headaches; Chiari malformation type II Social History Tobacco Use Types Packs/Day Years [...] of this encounter Results * MRI BRAIN WITHOUT CONTRAST (07/29/2017 10:07 AM EST) Anatomical Region Laterality Modality Head Magnetic Resonan ce 07/29/2017 10:3 1 AM EST Impressions 07/29/2017 10:44 AM EST Borderline pituitary enlargement. This abuts but does not prominently displace the cavernous sinus. No discrete mass seen. No evidence of cerebellar tonsillar ectopia or other source of headache. Ordering physician: Veena Haney MD POS - [id number] Edited by: Jaclyn Velez on 07/29/2017 10:41 AM Narrative 07/29/2017 10:44 AM EST HISTORY: Chiari type II malformation. Headaches. Left facial and tongue numbness. COMPARISON: None. TECHNIQUE: Exam performed on a 1.5 Ting high-field MRI scanner. Axial T1, T2, T2*, T2 FLAIR and diffusion-weighted imaging with ADC map, sagittal T1 sequences were obtained. FINDINGS: The pituitary is enlarged, extending superiorly and abutting the optic chiasm, craniocaudal extent of 8.8 mm. Transverse dimensions are 10 x 8.1 mm. This is upper normal in overall size and young women can have prominent upper margin of the pituitary. The posterior bright spot does not appear displaced or compressed and no other discrete mass features are suggested. The cerebellar tonsils are not ectopic. No abnormal intra or extra-axial blood or fluid collection, mass, or mass effect is otherwise identified. No white matter lesions. No restricted diffusion or abnormal susceptibility effects. Sulci and ventricles are within the range of normal. There appear to be preserved flow voids in the major intracranial arteries and veins. No orbital lesions identified. Paranasal sinuses appear clear. No fluid intensity in mastoid air cells. Procedure Note Jorden Case MD - 07/29/2017 HISTORY: Chiari type II malformation. Headaches. Left facial and tonguenumbness. COMPARISON: None. TECHNIQUE: Exam performed on a 1.5 Ting high-field MRI scanner. AxialT1, T2, T2*, T2 FLAIR and diffusion-weighted imaging with ADC map,sagittal T1 sequences were obtained. FINDINGS: The pituitary is enlarged, extending superiorly and abutting the opticchiasm, craniocaudal extent of 8.8 mm. Transverse dimensions are 10 x 8.1mm. This is upper normal in overall size and young women can haveprominent upper margin of the pituitary. The posterior bright spot doesnot appear displaced or compressed and no other discrete mass features aresuggested. The cerebellar tonsils are not ectopic. No abnormal intra or extra-axial blood or fluid collection, mass, or masseffect is otherwise identified. No white matter lesions. No restricteddiffusion or abnormal susceptibility effects. Sulci and ventricles arewithin the range of normal. There appear to be preserved flow voids inthe major intracranial arteries and veins. No orbital lesions identified.Paranasal sinuses appear clear. No fluid intensity in mastoid aircells. IMPRESSION: Borderline pituitary enlargement. This abuts but does not prominentlydisplace the cavernous sinus. No discrete mass seen. No evidence ofcerebellar tonsillar ectopia or other source of headache. Ordering physician: Veena Haney MD POS - [id number] Edited by: Jaclyn Velez on 07/29/2017 10:41 AM Veena Haney MD IMG MR HEAD/NECK Final Re sult documented in this encounter Visit Diagnoses Diagnosis Generalized headaches Headache Chiari malformation type II Spina bifida with hydrocephalus, unspecified region Generalized headaches Headache Chiari malformation type II Spina bifida with hydrocephalus, unspecified region documented in this encounter Additional Health Concerns Infection Onset Date Last Indicated Resolved Time CoV-Exposed Comment:Recent close contact 01/31/2020 01/31/2020 02/14/2020 1:23 AM EDT documented as of this encounter Care Teams Trim Die Maker Relationship Specialty Start Date End Date Akanksha Romo MD [address] [place] [address] [address] [place] [address] PCP - General 06/29/17 09/03/17 Julissa Eid MD [address] [place] [id number] PCP - General Pediatrics 09/04/17 03/26/20 Bhavna Rios NP [address] [place] [phone] [email or web address] PCP - General Family Medicine 12/17/20 documented as of this encounter Additional Source Comments The information contained in this document represents components of the legal health record. It is not the complete legal health record.[facility]
== END 2025-06-09 16:40 | disposition home or self-care (01) ==
LOC: HO.HMCH 16:27
DX: Z23 Encounter for immunization (principal)

== ENCOUNTER → 2025-06-09 16:27 | Outpatient (BNVA) | payer OTHER, SELFPAY | DX: Z23 Encounter for immunization (principal) | CPT/HCPCS: 90471; 90472; 90656; 90746 ==